=== PATIENT | female | born 1985 | race Caucasian/White ===

== ENCOUNTER 2020-05-22 20:22 | Observation (INO) ==
--- NOTE | 2020-05-22 21:35 | Labor Progress Brief Note ---
Date of Service May 22, 2020 Subjective Patient called with c/o decreased FM and was advised to come in for NST. Occ B- Hx (had ONE painful tightening in the 20min of monitoring after she arrived here) in a background of menstrual type cramps. No LOF, no VB. Since admission has felt 3 movements. Of note, patient has itching of palms/soles and was tested for bile acids recently, has appt scheduled in office tomorrow to get those results. Assessment & Plan (1) Cholestasis of : Patient barely meets criteria for diagnosis - and if diagnosis is made with total bile acids below 10, would be very mild / not at a level where delivery is recommended strongly at 37w2d. Current practice is to deliver as late as 39 weeks with reassuring testing and bile acids <40. However, she has itching of palms and soles. Her lab values are mildly abnormal, and these values come from blood that was drawn nearly a week ago now. Expectation would be for this process to worsen with further gestational age, not improve. Argument could probably be made both for delivering and for not- delivering based on interpretation of her current tracing and labs / GA. (2) Non-reassuring cardiotocographic tracing: Very difficult to interpret FHT tracing thus far and additional data is desired. Explained to patient and FOB that we are in a balance between wanting to deliver before the cholestasis reaches a critical stage, but not deliver earlier than necessary and increase risks of prematurity. Additional monitoring should help clarify true status. PO hydration encouraged in the meantime. Patient is reporting some movement, not much, but frequent movements are clearly audible on the monitor and visible/palpable on the abdomen, so I suspect status is actually good. If FHT are Cat 1 consistently with further tracing, there would be a good argument for continuing the with surveillance to 39 weeks GA. There is also the complicating matter of baby being previously in breech position, and patient is hoping to allow it to convert to vertex so that IOL / can be a possibility for her when the time for delivery comes. Discussed option of ECV --> IOL, but not late at night on a weekend with limited staff to respond if urgent CSec were needed. Questions answered of FOB and patient with Izzy Lucero RN in room, and they agree to overnight monitoring. Physical Exam Physical Exam: Bile acids are elevated, however only just barely - not even a total level of 10 yet. Here today the first 19 min of monitoring are a reactive NST. However she then had her one "real" contraction, and immediately the baseline dropped from 160 to 120, for about 1.5 minutes. This appears like a late deceleration, if strip is viewed only to that point. However, as tracing continues, fetus continues to have what appears to be a new pattern: Baseline looks like it would be 120 with lots of accels, however it has not yet stayed at the new "baseline" for two full minutes, so officially unable to call that the definite new baseline. Therefore some ambiguity: did she have a late decel after her only contraction, followed by a change in pattern / possibly more decels...or did she have a change in pattern from one Cat 1 strip to a different type of Cat 1 strip? [place] irritability with ONE contraction thus far. Results & Data ([facility]) Vital Signs (Past 12 Hours) Vital Signs Pulse BP 05/22/20 20:36 75 132/83 Coding Level of Care Code None Diagnoses Cholestasis of O26.619; K83.1 Non-reassuring cardiotocographic tracing O36.8390
--- NOTE | 2020-05-23 | Labor Progress Brief Note ---
Date of Service May 22, 2020 Subjective Patient feeling FM since her admission, increasing frequency in patient awareness. (RN notes audible FM continues on a very frequent basis). No painful ctx, has menstrual type cramping. No LOF, no VB. Assessment & Plan (1) Cholestasis of : status now appears to be clearly reassuring FHT. movement is occurring regularly, and patient is more aware of it. Would like to get BPP, and if reassuring, return to plan for outpatient monitoring and delivery at 39wk. Admission and Anticipated Discharge Date Admission Date: May 22, 2020 Physical Exam Physical Exam: FHT Cat 1 now, clearly, after additional monitoring [place] with occasional, irregular contractions on monitor but not painful to patient. 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
--- NOTE | 2020-05-23 07:13 | Ultrasound Report ---
US OB BPP wo NST single CLINICAL HISTORY: Decreased movement. COMPARISON STUDY: OB ultrasound January 25, 2020. TECHNIQUE: Transabdominal sonography of the pelvis was performed to assess for biophysical profile. FINDINGS: Single viable intrauterine gestation is noted with normal heart rate of 127 bpm. Plea se note that a dedicated anatomical survey was not performed. Position is breech. Placenta is l ocated within the fundus. Normal movement, tone and breathing were noted with a normal amniotic fluid index of 10.9 cm. The biophysical profile is 8 out of 8. IMPRESSION: 1. Normal biophysical profile 8 out of 8. 2. Single viable intrauterine gestation. Normal heart rate. 3. Breech position. ACT 112: Negative or not required by law. Electronically signed by: Silvino Wheeler M.D. 05/23/2020 7:12 AM
--- NOTE | 2020-05-24 11:54 | Discharge Summary ---
Date of Service May 24, 2020 Hospital Course (1) Non-reassuring cardiotocographic tracing: Eventually reactive with extended monitoring, and BPP 8/8. Bile acids very mildly elevated; likely HAS cholestasis, but at the total BA's <10 would not yet have qualified for formal dx on the day this blood was drawn. Discharged to keep appointment in office the following day. Coding Level of Care Code None Diagnoses Non-reassuring cardiotocographic tracing O36.8390
== END 2020-05-23 02:23 | disposition home or self-care (01) ==
LOC: 4S1 20:22 → OPB 20:22 → 4S1 20:24

== ENCOUNTER 2020-05-28 13:24 | Inpatient (IN) ==
[~2020-05-28 13:24] MED LIST: CITRIC ACID/SODIUM CITRATE 15 ML UDC PO SCH; ceFAZolin 2000MG 2,000 MG/15 ML SYR IV SCH
[2020-05-28] MEDS ORDERED: LACTATED RINGER'S 1,000 ML IV SCH (13:45)
--- NOTE | 2020-05-28 13:54 | History & Physical Report ---
Date of Service May 28, 2020 Assessment & Plan (1) Supervision of normal first : 34yo at 38.1 weeks GA. Active labor with breech presentation. 1. Fetus: Cat 1 2. Labor: Active with breech - Proceed with 3. Vitals: WNL 4. ICP: Symptoms presents. Bile acids elevated but below threshold for diagnosis. (2) Cholestasis of : (3) Breech presentation: (4) Active labor at term: Admission and Anticipated Discharge Date Admission Date: May 28, 2020 History of Present Illness Primary Care Provider: NO PCP 34yo at 38.1 weeks GA. Presents with intense contractions q3min. Denies VB, LOF. Good FM. Patient had closed cervix in clinic earlier this week. complicated by breech presentation and hand and foot pruritus with bile acids at 7. Repeat bile acids pending. Initial OB Labs Blood Type & RH O Positive Antibody Screen Negative HCT/HGB 36.4/12.2 Platelets 257 Pap Test Hx of ASCUS Chlamydia Neg Gonorrhea Neg Rubella immune RPR Non reactive Urine Culture/Screen neg HBsAg Neg HIV Non reactive MCV 93.3 Ultrasound nl 28 week 2 hr gtt. declined genetics/cf/sma. Allergies Allergy/AdvReac Type Severity Reaction Status Date / Time No Known Allergies Allergy Verified 05/25/20 09:37 Home Medications Medication Instructions Recorded Confirmed Type prenat.vits,teja,xan-aovc-mffbr 1 tab PO QAM 02/15/20 05/28/20 History breast pump #1 ea 03/21/20 05/23/20 Rx cholecalciferol (vitamin D3) 125 mcg PO QAM 05/25/20 05/28/20 History [Vitamin D3] omega 5-fwx-lfa-fish oil 2 cap PO QAM 05/25/20 05/28/20 History Patient History Medical History (Updated 05/28/20 @ 13:51 by Bernard Madrigal MD) Anxiety Atypical glandular cells of undetermined significance (OPAL) on cervical Pap smear H/O supraventricular tachycardia hx s/p ablation History of chicken pox Hx of migraines Remote hx Mitral valve prolapse Dx age 21 (Dr. Jeremi Malik [facility]) Surgical History H/O wisdom tooth extraction S/P ablation of ventricular arrhythmia x 2 Family History (Updated 02/15/20 @ 11:07 by Geetha Samuels) Grandfather (Maternal) Cancer of kidney Grandfather (Paternal) Stroke Denies family history of Ovarian cancer Breast cancer Colorectal cancer Social History (Updated 02/15/20 @ 11:09 by Geetha Samuels) Smoking Status: Former smoker Second Hand Exposure: No; Hx Alcohol Use: No Hx Substance Use: No Preferred Language: Belarusian Communication Ability: Effective Child Development Consultant Required: No Beliefs That Will Affect Care: None marital status: marital status details: Chris Bowen (36) [phone] Current Living Situation: Spouse Current Living Situation Comment: lives with spouse, dog current occupational status: 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 Other Information That Helps Us Care for You: No Feels Safe at Home: Yes Safety Concerns: Feels Safe At This Time Assistive Devices: Contacts and Glasses Physical Exam Constitutional: WD/WN, vitals as above Neck: trachea midline, no thyromegaly Respiratory: normal respiratory effort, lungs clear to auscultation Cardiovascular: RRR, no murmur, no edema Gastrointestinal (Abdomen): Inspection/Auscultation: abdomen not distended Percussion/Palpation: abdomen soft; abdomen nontender, no guarding and abdomen not rigid Neurologic: patellar DTR's 2+ bilat, sensation intact Psychiatric: A+Ox3, euthymic affect Genitourinary: OB Exam Abdomen: + breech (By US) Manual OB Exam: + cervical dilation 4 cm, + cervical effacement 90% and + station -2 OB Exam Monitor Tracing: + external FHT monitor used, + external uterine monitor used, + category I and + normal FHT variability; no early decelerations present, no late decelerations present and no variable decelerations Coding Level of Care Code None Diagnoses Supervision of normal first Z34.00 Cholestasis of O26.619; K83.1 Breech presentation O32.1XX0 Active labor at term
[2020-05-28] MEDS ORDERED: MoRPHine SULFATE PF 1 MG/ML 10 ML AMP/VIAL ONE (14:07)
[2020-05-28] MEDS ORDERED: fentaNYL citrate 100 MCG/2 ML VIAL ONE (14:07)
[2020-05-28] MEDS ORDERED: PROPOFOL IV EMULSION 10 MG/ML 20 ML VIAL IV ONE (14:13)
[2020-05-28] MEDS ORDERED: NALOXONE HCL 0.08 MG in SYRINGE 1.8 ML IV PRN (14:23)
[2020-05-28] MEDS ORDERED: NALOXONE HCL 0.4 MG/1 ML VIAL/CARP IV PRN (14:23)
[2020-05-28] MEDS ORDERED: diphenhydrAMINE 50 MG/ML VIAL IV PRN (14:23)
[2020-05-28] MEDS ORDERED: ONDANSETRON INJ 2 MG/ML 2 ML VIAL IV PRN (14:23)
[2020-05-28] MEDS ORDERED: NALOXONE HCL 1 MG in SODIUM CHLORIDE 0.9% 1000ML 1,000 ML IV PRN (14:23)
[2020-05-28] MEDS ORDERED: HYDROmorphone INJ 0.5 MG/0.5 ML SYR IV PRN (14:23)
[2020-05-28] MEDS ORDERED: LACTATED RINGER'S 500 ML IV PRN (14:23)
[2020-05-28] MEDS ORDERED: MoRPHine SULFATE PF 1 MG/ML 10 ML AMP/VIAL INT SPINAL ONE (14:23)
[2020-05-28] MEDS ORDERED: ePHEDrine sulfate 50 MG/ML AMP IV PRN (14:23)
[2020-05-28] MEDS ORDERED: DC INTRASPINAL MORPHINE SCH (14:30)
[2020-05-28] MEDS ORDERED: NO NARCOTICS OR SEDATIVES SCH (14:30)
[2020-05-28] MEDS ORDERED: SODIUM CHLORIDE 0.9% 1000ML 1,000 ML IV SCH (14:30)
--- NOTE | 2020-05-28 14:32 | Anesthesiology Consultation ---
Date of Service May 28, 2020 Covid 19 negative on 05/28/18. Assessment & Plan Chart Review Chart Review: Acceptable Risk for Surgery and Patient NOT seen in Pre Admission Testing Consults Requested none ASA ASA2E Proposed Anesthesia Anesthesia Type: MAC Spinal Risk / Benefits Reviewed With: PT / POA / Parent / Guardian, Accepts Plan and Informed Consent Obtained History Surgery Operation Date: 05/28/20 14:30 Proposed Procedures p Section in LD(Bilateral) - Bernard Madrigal MD Height/Weight Height: 5 ft 8 in Weight: 77.564 kg Allergies Allergy/AdvReac Type Severity Reaction Status Date / Time No Known Allergies Allergy Verified 05/25/20 09:37 Medications Home Medications Medication Instructions Recorded Confirmed Last Taken prenat.vits,teja,jur-abky-ncedi 1 tab PO QAM 02/15/20 05/28/20 05/27/20 breast pump #1 ea 03/21/20 05/23/20 Unknown cholecalciferol (vitamin D3) 125 mcg PO QAM 05/25/20 05/28/20 05/27/20 [Vitamin D3] omega 9-ylb-dvb-fish oil 2 cap PO QAM 05/25/20 05/28/20 05/27/20 Active Medications Generic Name Dose Route Start Last Admin Trade Name Freq PRN Reason Stop Dose Admin Citric Acid/Sodium Citrate 30 ml 05/28/20 06:00 05/28/20 14:16 Citric Acid/Sodium Citrate 15 Ml Udc PO 05/29/20 05:59 30 ml PREOP EVANGELINA Administration Cefazolin Sodium 2,000 mg in 15 mls @ 3.75 mls/min 05/28/20 06:00 05/28/20 14:32 Ancef 2000mg IV 05/29/20 05:59 3.75 mls/min PREOP EVANGELINA Administration Lactated Ringer's 1,000 mls @ 999 mls/hr 05/28/20 13:45 05/28/20 13:45 Lr IV 05/28/20 14:45 999 mls/hr .Q1H1M EVANGELINA Administration NPO Date Last Intake of Fluids: 05/13/20 Time Last Intake of Fluids: 12:00 Date Last Intake of Solids: 05/28/20 Time Last Intake of Solids: 12:00 Past Medical History Medical History Anxiety Atypical glandular cells of undetermined significance (OPAL) on cervical Pap smear H/O supraventricular tachycardia hx s/p ablation History of chicken pox Hx of migraines Remote hx Mitral valve prolapse Dx age 21 (Dr. Jeremi Malik [facility]) Exercise / Class Metabolic Activity II 4-5 Yardwork/Stairs/Walk up hill Past Family History Family History Grandfather (Maternal) Cancer of kidney Grandfather (Paternal) Stroke Denies family history of Ovarian cancer Breast cancer Colorectal cancer Past Surgical History Surgical History H/O wisdom tooth extraction S/P ablation of ventricular arrhythmia x 2 Past Anesthesia History No Hx of Anesthesia Complications and No Family Hx of Anesthesia Complications History of PONV History of PONV and Hx of Motion Sickness Social History Smoking Status: Former smoker tobacco type: cigarettes Hx Alcohol Use: No Hx Substance Use: No substance use type: does not use Review of Systems no chest pain or sob Physical Exam Vital Signs Last Vital Signs Temp 37.1 C 05/28/20 14:17 Pulse 104 H 05/28/20 14:30 Resp 18 05/28/20 14:17 BP 146/87 H 05/28/20 14:17 Pulse Ox 100 05/28/20 14:30 SpO2 99 ENMT Mouth: no TMJ abnormality Thyromental Distance: > or= 3.5 Finger Breadths Mallampati Class: II Neck normal visual inspection Respiratory normal respiratory effort Auscultation: lungs clear to auscultation bilaterally Cardiovascular Rate/Rhythm: regular rate and regular rhythm Musculoskeletal Spine: normal cervical ROM Neurologic moves all extremities Psychiatric Orientation: alert and oriented x 3 Testing Laboratory Results 05/28/20 13:59 Echocardiogram Date: 05/04/20 EF: 60 LV Function: normal Valvular Disease: + MR (mild, MVP)
[2020-05-28 14:33] LABS: Hematocrit (blood only) 37.1 % (37-47); Hemoglobin 12.5 g/dL (12.0-16.0); Mean Corpuscular Hemoglobin 31.5 pg (25-34); Mean Corpuscular Volume 93.5 fL (80-100); Mean Platelet Volume 11.2 fL (7.4-10.4); Platelet Count 194 K/uL (130-400); RDW Standard Deviation 44.3 fL (36.4-46.3); Red Blood Count 3.97 M/uL (4.2-5.4); White Blood Count 12.35 K/uL (4.8-10.8)
[2020-05-28] MEDS ORDERED: OXYTOCIN 10 UNITS/ML VIAL ONE (14:36)
[2020-05-28 14:37] LABS: Mean Corpuscular Hgb Conc 33.7 g/dL (32-36)
[2020-05-28] MEDS ORDERED: PHENYLEPHRINE 100MCG/ML 5ML SYR ONE ×2 (15:04→15:19)
[2020-05-28] MEDS ORDERED: ONDANSETRON INJ 2 MG/ML 2 ML VIAL ONE (15:04)
[2020-05-28] MEDS ORDERED: DIPHTHERIA/TETANUS/PERTUSSIS 0.5 ML SYR/VIAL IM ONE (15:35)
[2020-05-28] MEDS ORDERED: HYDROCORTISONE ACETATE 25 MG SUPP PR PRN (15:35)
[2020-05-28] MEDS ORDERED: BENZOCAINE 20% AER SPR 82.5 GM CAN EXT PRN (15:35)
[2020-05-28] MEDS ORDERED: MAGNESIUM HYDROXIDE SUSP 30 ML UDC PO PRN (15:35)
[2020-05-28] MEDS ORDERED: SUPERCREAM 0.870% 15 GM JAR EXT PRN (15:35)
[2020-05-28] MEDS ORDERED: SENNA 8.6 MG TAB PO PRN (15:35)
--- NOTE | 2020-05-28 15:35 | Post Operative Brief Note ---
PG Immediate Post Op with CF Date of Surgery May 28, 2020 Pre & Post Diagnosis Operation Date: 05/28/20 14:30 Pre-Op Diagnosis: Intrauterine at term;Breech;Labor;Cholestasis of Post-Op Diagnosis: Same; Delivery of a live female child at 1501 ( main OR 3) I identified the patient and participated in the time-out.: Yes Procedure Operation Date: 05/28/20 14:30 Actual Procedures p Section in LD(Bilateral) - Bernard Madrigal MD Surgeon Bernard Madrigal MD Chemical Lab Supervisor None Estimated Blood Loss 500 Findings Consistent with Post-Op Diagnosis Specimens Specimen Description: A. Placenta-hold B. Cord Blood Drains Vazquez Catheter
--- NOTE | 2020-05-28 16:04 | Anesthesiology Progress Note ---
Date of Service May 28, 2020 Anesthesia Post Procedure Vital Signs Vital Signs: Temp Pulse Resp BP Pulse Ox 05/28/20 15:58 102 H 97 05/28/20 15:54 105 H 111/79 91 05/28/20 15:53 105 H 99 05/28/20 15:49 101 H 139/80 05/28/20 15:48 109 H 98 05/28/20 15:43 109 H 100 05/28/20 14:30 104 H 100 05/28/20 14:17 37.1 C 80 18 146/87 H 05/28/20 13:33 37.1 C 18 Transfer of Care Handoff Completed per policy Notes Mental Status: alert / awake / arousable Patient Amnestic to Procedure: Yes Nausea / Vomiting: adequately controlled Pain: adequately controlled Airway Patency, RR, SpO2: stable & adequate BP & HR: stable & adequate Hydration State: stable & adequate Neuraxial Anesthesia: was administered and sensory block is resolving Anesthetic Complications: no major complications apparent and Pt Satisfied with anesthetic care Notes: The patient had a tachycardic episode in the OR. She felt nauseous and "shaky." She is awake and stable in recovery.
--- NOTE | 2020-05-28 16:39 | Operative Report (OR) ---
DATE OF OPERATION: 05/28/2020 PROCEDURE: Primary low transverse section. SURGEON: Bernard Madrigal MD. PREOPERATIVE DIAGNOSES: 1. Single intrauterine at term. 2. Breech presentation. 3. Labor. 4. Suspected cholestasis of . POSTOPERATIVE DIAGNOSES: 1. Single intrauterine at term. 2. Breech presentation. 3. Labor. 4. Suspected cholestasis of . 5. Status post procedure. ESTIMATED BLOOD LOSS: 500 mL DRAINS: A Vazquez catheter. FLUIDS: Continuous lactated Ringer. URINE OUTPUT: Per Vazquez catheter. COMPLICATIONS: None. FINDINGS: Viable female infant with weight pending, Apgars 8 and 9 at 1 and 5 minutes respectively. INDICATIONS: The patient is a 34-year-old G1, P0, admitted at 38 weeks 1 day gestational age, in labor. At initial evaluation, the patient was found to be 4 cm dilated, 100% effaced, -2 station with painful contractions occurring about every 3-4 minutes. The patient was consented for the primary section, which was performed without complication. DESCRIPTION OF PROCEDURE: The patient was taken to the operating room after consents were ensured. Upon presentation, she was properly identified. Spinal anesthesia was obtained without difficulty. The patient was then prepped and draped in normal sterile fashion. Preprocedural timeout was performed. Adequate surgical levels were noted on testing. A Pfannenstiel incision was then made with a knife and was carried down to underlying fascia with the Bovie and blunt dissection. The fascia was then nicked at the midline with the knife. This was extended laterally in each direction with pickups and Granados scissors. Superior aspect of the fascia was grasped with Kochers x2, elevated off the underlying rectus muscles using blunt dissection, the inferior aspect of the fascia was grasped with Kochers x2, elevated off the underlying rectus muscle using blunt dissection. The midline was then entered bluntly and placed on stretcher to provide adequate room for delivery. The uterus was noted to be midline. A bladder flap was created. A low transverse uterine incision was then made. Head of the was noted to be in scout breech position and the bottom was delivered through the hysterotomy to the level of the knee. Both legs were then internally rotated, one after the other to allow for delivery through the hysterotomy. The delivery continued to the level of the axilla. Both arms were delivered with internal rotation at the shoulder. The head of delivered without difficulty. was noted to be vigorous upon delivery. Cord was double clamped and cut. was delivered and taken to the waiting nursery staff. Cord blood was obtained. Attention was then turned to deliver the placenta, which was delivered intact with 3-vessel cord with uterine massage and gentle cord traction. The uterus was exteriorized and several passes were made to remove any remaining membranes with a dry lap. The hysterotomy was then reapproximated with 0 Vicryl in continuous running locked stitch. A second imbricating layer was performed. The posterior cul-de-sac was then cleaned of clots and debris. The uterus was inspected and was noted to have normal-appearing anatomy of bilateral ovaries, bilateral fallopian tubes and uterus. The uterus was returned to the maternal abdomen. The right and left pericolic gutters were cleaned of clots and debris. The hysterotomy inspected and noted to be hemostatic. The muscle, fascia and subcutaneous layers were inspected and noted to be hemostatic. The fascia was then reapproximated with 0 Vicryl continuous running stitch. The subcutaneous layers were inspected and noted to be hemostatic and were reapproximated with a 2-0 plain in a continuous running stitch. The dermal layers were reapproximated with 3-0 Vicryl on a Damien needle. Needle, sponge and instrument counts were correct at the completion of the case with mother and stable in the immediate post-delivery period. I attest to the content of the Intraoperative Record and any orders documented therein. Any exception s are noted below.
[2020-05-28] MEDS ORDERED: OXYTOCIN 20 UNITS in LACTATED RINGER'S 1,000 ML IV SCH (16:45)
[2020-05-28] MEDS: SIMETHICONE 80 MG CHEW PO SCH ×2 (17:18→20:13)
[2020-05-28] MEDS: KETOROLAC 30 MG/ML VIAL IV PRN ×2 (17:49→23:22)
[2020-05-28] MEDS: LACTATED RINGER'S 1,000 ML IV SCH (18:59)
[2020-05-28] MEDS: DOCUSATE SODIUM 100 MG CAP PO SCH (20:13)
[2020-05-29] MEDS: LACTATED RINGER'S 1,000 ML IV SCH (01:21)
[2020-05-29] MEDS: KETOROLAC 30 MG/ML VIAL IV PRN (06:02)
[2020-05-29 06:34] LABS: Basophils # (auto) 0.01 K/uL (0-0.2); Basophils % (auto) 0.1 %; Eosinophils # (auto) 0.01 K/uL (0-0.5); Eosinophils % (auto) 0.1 %; Hematocrit (blood only) 34.1 % (37-47); Hemoglobin 11.9 g/dL (12.0-16.0); Immature Granulocytes # (auto) 0.03 K/uL (0.00-0.02); Immature Granulocytes % (auto) 0.2 %; Lymphocytes # (auto) 1.25 K/uL (1.2-3.4); Lymphocytes % (auto) 8.5 %; Mean Corpuscular Hemoglobin 31.9 pg (25-34); Mean Corpuscular Hgb Conc 34.9 g/dL (32-36); Mean Corpuscular Volume 91.4 fL (80-100); Mean Platelet Volume 10.6 fL (7.4-10.4); Monocytes # (auto) 0.81 K/uL (0.11-0.59); Monocytes % (auto) 5.5 %; Neutrophils # (auto) 12.56 K/uL (1.4-6.5); Neutrophils % (auto) 85.6 %; Platelet Count 159 K/uL (130-400); RDW Coefficient of Variation 13.1 % (11.5-14.5); RDW Standard Deviation 43.8 fL (36.4-46.3); Red Blood Count 3.73 M/uL (4.2-5.4); White Blood Count 14.67 K/uL (4.8-10.8)
[2020-05-29] MEDS ORDERED: PROMETHAZINE HCL 25 MG in SODIUM CHLORIDE 0.9% 50 ML IV PRN (08:24)
[2020-05-29] MEDS ORDERED: diphenhydrAMINE Capsule 25 MG CAP PO PRN (08:24)
[2020-05-29] MEDS ORDERED: KETOROLAC 30 MG/ML VIAL IV PRN (08:24)
[2020-05-29] MEDS ORDERED: diphenhydrAMINE 50 MG/ML VIAL IV PRN (08:24)
[2020-05-29] MEDS ORDERED: ONDANSETRON INJ 2 MG/ML 2 ML VIAL IV PRN (08:24)
--- NOTE | 2020-05-29 10:00 | Obstetrical Progress Note ---
Date of Service May 29, 2020 Assessment & Plan (1) Encounter for care and examination after delivery: 34yo day 1 s/p LTCS. Doing well. Routine care Subjective Ambulation: ambulating normally Voiding: no voiding problems Passing Gas:: Yes Diet Tolerance:: regular diet Lochia:: Moderate Physical Exam Constitutional WD/WN, vitals as above Respiratory normal respiratory effort; no respiratory distress and no labored breathing Gastrointestinal (Abdomen) Inspection/Auscultation: abdomen normal to inspection; abdomen not distended Percussion/Palpation: abdomen soft; abdomen nontender, no guarding and abdomen not rigid Genitourinary OB Exam Abdomen: + fundal height Fundus: + firm and + relation to umbilicus (Below); not tender and not boggy Results & Data ([facility]) Vital Signs (Past 12 Hours) Vital Signs Temp Pulse Resp BP Pulse Ox 05/29/20 08:10 36.8 C 67 18 118/69 98 05/29/20 06:00 18 98 05/29/20 05:00 20 97 05/29/20 04:01 16 98 05/29/20 04:00 36.7 C 62 20 135/74 98 05/29/20 03:00 20 97 05/29/20 02:00 16 97 05/29/20 01:00 18 97 05/29/20 00:00 20 98 05/28/20 23:30 36.7 C 60 18 153/79 H 97 05/28/20 23:00 18 98 05/28/20 22:00 20 98
[2020-05-29] MEDS: IBUPROFEN 600 MG TAB PO PRN ×4 (10:06→22:41)
[2020-05-29] MEDS: FERROUS SULFATE 325 MG TAB PO SCH (10:07)
[2020-05-29] MEDS: SIMETHICONE 80 MG CHEW PO SCH ×4 (10:07→19:46)
[2020-05-29] MEDS: oxyCODONE/ACETAMINOPHEN 5mg/325mg TAB PO PRN ×4 (10:07→22:40)
[2020-05-29] MEDS: DOCUSATE SODIUM 100 MG CAP PO SCH ×2 (10:07→19:46)
[2020-05-29] MEDS: PRENATAL VITAMIN 1 TAB PO SCH (10:07)
[2020-05-29] MEDS ORDERED: bisacodyL 5 MG TABEC PO SCH (20:00)
[2020-05-30] MEDS: oxyCODONE/ACETAMINOPHEN 5mg/325mg TAB PO PRN ×3 (03:46→13:03)
[2020-05-30] MEDS: IBUPROFEN 600 MG TAB PO PRN ×3 (03:46→13:04)
--- NOTE | 2020-05-30 07:51 | Obstetrical Progress Note ---
Date of Service May 30, 2020 Assessment & Plan (1) Encounter for care and examination after delivery: 34yo day 1 s/p LTCS. Doing well. Routine care Subjective Ambulation: ambulating normally Voiding: no voiding problems Diet Tolerance:: regular diet Lochia:: Moderate Feeding Type:: breast feeding Physical Exam Constitutional WD/WN, vitals as above Respiratory normal respiratory effort; no respiratory distress and no labored breathing Gastrointestinal (Abdomen) Inspection/Auscultation: abdomen normal to inspection; abdomen not distended Percussion/Palpation: abdomen soft; abdomen nontender, no guarding and abdomen not rigid incision c/d/i Genitourinary OB Exam Abdomen: + fundal height Fundus: + firm and + relation to umbilicus (Below); not tender and not boggy Results & Data ([facility]) Vital Signs (Past 12 Hours) Vital Signs Temp Pulse Resp BP Pulse Ox 05/29/20 22:40 36.7 C 63 16 133/78 97
[2020-05-30] MEDS: SIMETHICONE 80 MG CHEW PO SCH ×2 (08:28→13:03)
[2020-05-30] MEDS: DOCUSATE SODIUM 100 MG CAP PO SCH (08:28)
[2020-05-30] MEDS: PRENATAL VITAMIN 1 TAB PO SCH (08:29)
[2020-05-30] MEDS: FERROUS SULFATE 325 MG TAB PO SCH (08:29)
[2020-05-30] MEDS ORDERED: bisacodyL 10 MG SUPP PR PRN (15:35)
--- NOTE | 2020-06-09 04:07 | Discharge Summary (DS) ---
HOSPITAL COURSE: The patient was admitted in early labor with fetus in breech presentation. The patient ultimately underwent a primary low transverse section, which was performed without complication. The patient remained in-house for 2 days and did well without any complications or concerns. The patient was discharged home in stable condition on postoperative day #2 per patient request with both written and verbal discharge instructions. I recommend 6-week followup visit for routine care and earlier if any complications or concerns arise.
== END 2020-05-30 14:45 | disposition home or self-care (01) | DRG 786 ==
LOC: OPB 13:24 → 4S1 13:25 → 4S2 18:45

== ENCOUNTER 2022-06-12 22:07 | Observation (INO) ==
[2022-06-12 22:52] LABS: Basophils # (auto) 0.02 K/uL (0-0.2); Basophils % (auto) 0.3 %; Eosinophils # (auto) 0.09 K/uL (0-0.50); Eosinophils % (auto) 1.2 %; Hematocrit (blood only) 36.7 % (37.0-47.0); Hemoglobin 12.3 g/dl (12.0-16.0); Immature Granulocytes # (auto) 0.04 K/uL (0.01-0.20); Immature Granulocytes % (auto) 0.5 %; Lymphocytes # (auto) 2.03 K/uL (1.2-3.4); Lymphocytes % (auto) 27.5 %; Mean Corpuscular Hemoglobin 30.9 pg (25.0-34.0); Mean Corpuscular Hgb Conc 33.5 g/dL (32.0-36.0); Mean Corpuscular Volume 92.2 fL (80.0-100.0); Mean Platelet Volume 9.7 fL (9.4-12.4); Monocytes # (auto) 0.82 K/uL (0.11-0.59); Monocytes % (auto) 11.1 %; Neutrophils # (auto) 4.38 K/uL (1.40-6.50); Neutrophils % (auto) 59.4 %; Platelet Count 234 K/uL (130-400); RDW Coefficient of Variation 13.7 % (11.5-14.5); RDW Standard Deviation 46.4 fL (36.4-46.3); Red Blood Count 3.98 M/uL (4.20-5.40); White Blood Count 7.38 K/ul (4.8-10.8)
[2022-06-12 23:08] LABS: Alanine Aminotransferase 7 U/L (7-52); Albumin Globulin Ratio 1.1 (0.9-2); Albumin Level 3.4 gm/dl (3.4-5.0); Alkaline Phosphatase 106 U/L (34-104); Anion Gap 5 (3-11); Aspartate Aminotransferase 17 U/L (13-39); BUN Creatinine Ratio 16.3 (10-20); Bilirubin,Total 0.3 mg/dl (0.2-1.0); Blood Urea Nitrogen 7 mg/dl (6-23); Calcium 8.7 mg/dl (8.6-10.3); Carbon Dioxide 25 mmol/L (21-32); Chloride 104 mmol/L (98-107); Creatinine Clr Calc Pharmacy 199.1 ml/min; Est GFR (African American) > 150.0 ml/min; Est GFR (Non-African American) 131.8 ml/min; Globulin 3.2 gm/dl (2.5-4.0); Glucose 97 mg/dl (70-99(Fasting)); Potassium 3.6 mmol/L (3.5-5.1); Sodium 134 mmol/L (136-145); Total Protein 6.6 gm/dl (6.0-8.3)
[2022-06-12 23:15] LABS: Troponin I High Sensitivity 5.5 pg/ml (0-14)
[2022-06-12 23:21] LABS: INR 0.9 (0.9-1.1); Partial Thromboplastin Ratio 0.9; Partial Thromboplastin Time 23.5 Seconds (21.0-31.0); Prothrombin Time 9.8 Seconds (9.0-12.0)
[2022-06-13 01:48] LABS: Magnesium 1.7 mg/dl (1.7-2.4)
--- NOTE | 2022-06-13 03:52 | History & Physical Report ---
Date of Service June 13, 2022 Assessment & Plan (1) Pre-syncope: Plan: 36 F at 36 weeks presenting to the hospital for episode of presyncope without fall. Now admitted for observation for telemetric supervision. Presyncopal episode -Prodromal vision tunneling, no trauma or LOC. Vitals, labs, imaging mostly normal. -First-time occurrence. Patient has remote history of SVT that resolved s/p ablation x2. -No other significant PMH, no chronic medications prior to . * Admit to telemetry unit for observation * Repleted K+ to 4.0, Mg 2+ to 2.0. * GLUE CLAMP OPERATOR consulted for additional evaluation as she is 36 weeks . Appr eciate recs * IV bolus LR x500 cc for symptomatic hypotension. Otherwise trend vitals. Code: Full code Dispo: Med-Surg telemetry FEN/GI: Regular diet DVT Prophylaxis: None PT/OT: No Consults: GLUE CLAMP OPERATOR (2) Viable : History of Present Illness Primary Care Provider: Leonardo Cifuentes MD Mago is a 36-year-old at 36 weeks who presents to the hospital for further evaluation of an episode of presyncope that she had this afternoon. Patient reports she was standing at home when she felt her heart "stop beating." She then began feeling dizzy and felt her vision narrowing, as though she were slowly blacking out. She then called for her , who is in the next room, who then brought her to the hospital for evaluation. ROS + nausea, and shaking chills. She denies headache, fall, loss of consciousness, chest pain, palpitations, shortness of breath, abdominal pain, diaphoresis, recent illness, or paresthesias in extremities. She denies prior history of syncope or presyncope. She does report a prior episode of SVT (s/p ablation x2, no recurrence/chronic meds; sees Dr. Jeremi Varela in [place] for routine surveillance) that occurred 15 years ago. Patient also has mitral valve prolapse (most recent echo 01/22/2022 shows trace MR without mitral valve stenosis, EF = 60 to 65%, no other valvular abnormalities). She denies any family history of cardiac related at a young age or any cardiomyopathy. She has no other medical history and was not on any chronic medications prior to her . In the ED, vitals were within normal limits. Labs revealed Na+ of 134, K+ of 3.6, alk phos of 106. No leukocytosis, thrombocytopenia or anemia. Creatinine of 0.43, which appears to be her baseline. Initial troponin was negative. Patient also reported some varicose veins in the pubic area, right-sided medial thigh pain and was sent for venous Doppler study which was negative for DVT. On admission, patient is resting comfortably on room air with her at bedside. She corroborates HPI. ROS+ no new symptoms. She has had no recurrence of her heart skipping. Allergies Allergy/AdvReac Type Severity Reaction Status Date / Time No Known Allergies Allergy Verified 06/14/22 09:07 Home Medications Medication Instructions Recorded Confirmed Type prenat.vits,teja,[id number] 1 tab PO QAM 02/15/20 06/14/22 History cholecalciferol (vitamin D3) 125 125 mcg PO QAM 05/25/20 06/14/22 History mcg (5,000 unit) tablet (Vitamin D3) omega 3-dha 250 mg-epa 350 mg-fish 2 cap PO QAM 05/25/20 06/14/22 History oil 1,000 mg capsule Past Med/Surg History Medical History (Updated 06/14/22 @ 01:25 by Concepción Han DO) Active labor at term Anxiety Atypical glandular cells of undetermined significance (OPAL) on cervical Pap smear Breech presentation Cholestasis H/O supraventricular tachycardia hx s/p ablation History of chicken pox Hx of migraines Remote hx Mitral valve prolapse Dx age 21 (Dr. Jeremi Malik [facility]) Supervision of normal first Surgical History H/O wisdom tooth extraction History of removal of cyst S/P ablation of ventricular arrhythmia x 2 S/P section Family History Grandfather (Maternal) Cancer of kidney Heart disease Grandfather (Paternal) Stroke Mother Hypothyroid Denies family history of Ovarian cancer Breast cancer Colorectal cancer Social History (Updated 11/29/21 @ 09:53 by Geetha Samuels) Smoking Status: Never smoker Second Hand Exposure: No; Hx Alcohol Use: No Hx Substance Use: No Preferred Language: Scottish Communication Ability: Effective Visual Impairment: No Limitations Blacksmith Assistant Required: No Beliefs That Will Affect Care: None marital status: marital status details: Chris Bowen (37) [phone] Current Living Situation: Family Current Living Situation Comment: lives with spouse, son, dog current occupational status: 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 Feels Safe at Home: Yes during the past year weight has: decreased > 10 lbs Assistive Devices: None Review of Systems Review of Systems: All systems reviewed & are unremarkable except as noted in HPI & below Physical Exam Physical Exam: General: No acute distress HEENT: PERRLA. Normal conjunctiva, anicteric sclera. Oropharynx normal. Respiratory: Normal respiratory effort, CTABL. Cardiovascular: RRR without murmurs, gallops, or rubs. 1+ nonpitting pedal edema bilaterally. GI: Normal bowel sounds heard on auscultation. Nontender x4 quadrants Neuro: Alert and oriented x3. Results & Data Results & Data Vital Signs (Past 12 Hours) Vital Signs Temp Pulse Pulse Resp BP BP Pulse Ox 06/13/22 03:19 76 20 112/58 L 98 06/13/22 02:57 83 06/13/22 01:10 68 18 104/58 L 98 06/12/22 23:06 74 18 145/81 H 98 06/12/22 22:36 88 06/12/22 22:20 36.8 C 84 18 130/87 100 O2 Del Method 06/13/22 03:19 Room Air 06/13/22 02:57 06/13/22 01:10 Room Air 06/12/22 23:06 Room Air 06/12/22 22:36 06/12/22 22:20 Room Air Supervising Physician Co-Signing Physician Notes Attending addendum: I have physically seen this patient, have supervised the medical residents activities, and agree with the H&P unless as otherwise noted. Assessment and Plan: Presyncope- Potential contributing factors including but limited to: 36-week , history of SVT status post ablation 10 years ago, dehydration, infection such as UTI Admit to telemetry to monitor for arrhythmia Potassium 3.6, give 2K riders to target for Magnesium 1.7 not a candidate for optimization with IV due to , encouraging high potassium magnesium foods GLUE CLAMP OPERATOR consulted to monitor baby for routine assessment IV fluids as noted Remaining orders and notations as noted Resident Activity Tracking Resident Involvement: Resident Care Provided Care Provided: Adult Hospital Medicine
--- NOTE | 2022-06-13 04:02 | Ultrasound Report ---
Exam(s): US VENOUS RIGHT LOWER EXTREMITY EXAM: US Duplex Right Lower Extremity Veins CLINICAL HISTORY: Reason for exam: eval for DVT. TECHNIQUE: Real-time duplex ultrasound scan of the right lower extremity veins integrating B-mode two-dimensional vascular structure, Doppler spectral analysis, color flow Doppler imaging and compression. COMPARISON: None. FINDINGS: Deep veins: Diffuse homogeneous echoes demonstrated within the right superficial femoral vein with otherwise normal color flow within normal compressibility and normal respiratory variation consistent with rouleaux formation. Normal augmentation. No DVT in the visualized common femoral, femoral, proximal deep femoral or popliteal veins. The veins demonstrate normal color flow, are normally compressible, with normal phasic flow and/or augmentation response. Superficial veins: Unremarkable. No thrombus in the visualized great saphenous vein. Soft tissues: No acute findings. No popliteal cyst. IMPRESSION: No ultrasonographic evidence of deep venous thrombosis involving the right lower extremity. Electronically signed by: Reyna Tabares MD 06/13/22 04:01 AM
[2022-06-13] MEDS ORDERED: MAGNESIUM SULFATE / D5W 1 GM/100 ML BAG IV SCH (04:33)
--- NOTE | 2022-06-13 04:46 | Emergency Department Note ---
Impression & Plan Near syncope, 36 weeks gestation [facility] Note NAME: ELIO TALAVERA AGE: 36 SEX: F ARRIVES VIA: Walk-In INFORMANT: Patient ED PROVIDER(S): Concepción Han DO CHIEF COMPLAINT: Lightheaded and shaking PLAN: Disposition: Admit to the [facility] Condition: Guarded MEDICAL DECISION MAKING: This is a 36-year-old female patient G3, P1 who presents to the emergency department after an episode of near syncope, lightheadedness and shakiness. Patient is 36 weeks . This has been an uneventful . She de scribes an episode where she felt her heart pause and then as if she was going to pass out. Her assisted her to a bed to lay down. She then felt lightheaded and shaky. She presents to the emergency department for evaluation. EKG was unremarkable. Laboratory studies were essentially normal except for a potassium which was on the low end of normal. The patient does have a history of SVT for which she underwent ablation on 2 different occasions. Patient describes engorged and painful varicose veins in her right groin/anterior and medial thigh. She had undergone duplex evaluation of that extremity 3 weeks ago which was negative for DVT. We really evaluated that extremity tonight by duplex and it was again negative. Patient has been monitored here in the emergency department on a manufacturing lead with no obvious ectopic beats or signs of arrhythmia. [facility] and [facility] will evaluate for further management. Triage Nursing notes reviewed and agree with them. Additional history obtained from the who is at the bedside External medical records reviewed including obstetrics notes Vital Signs: reviewed and remarkable for mild hypotension Differential diagnosis: Cardiac dysrhythmia, dehydration, electrolyte abnormality, DVT, PE Diagnostics interpreted by me: ECG normal sinus rhythm at a rate of 87 with sinus arrhythmia. There is no ST segment elevation or signs of ischemia. There is no ectopy. QTc was 423 ms. Cardiac Monitoring: Normal sinus rhythm at 74 Laboratory studies: See below Imaging studies: As per stat rad Right lower extremity duplex: See report HPI: 36/F arrives for evaluation of lightheadedness and shaking. Patient describes an episode where she was standing in her kitchen and felt her heart pause. She then became extremely lightheaded and near syncopal. She then called for her . She then began to shake and he assisted her to the bed. She then was quite nauseated. She describes significant varicose veins in the right thigh which have become more painful. She has a history of SVT status post ablation approximately 10 years ago. PAST MEDICAL HISTORY:See Below PAST SURGICAL HISTORY:See Below FAMILY HISTORY:See Below SOCIAL HISTORY:See Below HOME MEDICATIONS:See list ALLERGIES:None VITALS:See Below PHYSICAL EXAMINATION: HEENT: Head - normocephalic and atraumatic. Pupils are equal, round, and reactive to light. Extraocular eye muscles are intact, and sclera are anicteric. Nose - moist nasal mucosa without discharge. Mouth - moist buccal mucosa. Oropharynx is nonerythematous and there is no tonsillar exudate or edema noted. Neck: Supple; no JVD, nuchal rigidity, cervical lymphadenopathy, or auscultated bruits. Heart: Regular rate and rhythm. There is a normal S1 and S2 with no murmurs, clicks, or gallops appreciated. Lungs: Clear to auscultation bilaterally with no wheezes, rales, or rhonchi. Abdomen: Soft, nontender and gravid. There are no palpable pulsatile masses or hepatosplenomegaly. There is no guarding, rigidity, or rebound noted. Extremities: Slightly engorged varicose veins in the right inguinal canal as well as the anterior and medial aspect of the right thigh. These areas are slightly tender to touch. There is no appreciable edema in either lower extre mity. Skin: warm and dry with good turgor and no rashes. ED COURSE: Times/Reassessments: 2325: Patient was evaluated in room C11. A complete history and physical was performed. An IV lock was initiated and labs are drawn as above. An order was placed for continuous cardiac monitoring. The patient was in a normal sinus rhythm at a rate of 74. A twelve-lead EKG was obtained as described above. Patient had an ultrasound of the right lower extremity. [facility] and [facility] will evaluate for further management. Concepción Han DO Past Med/Surg History Medical History (Updated 06/14/22 @ 01:25 by Concepción Han DO) Active labor at term Anxiety Atypical glandular cells of undetermined significance (OPAL) on cervical Pap smear Breech presentation Cholestasis H/O supraventricular tachycardia hx s/p ablation History of chicken pox Hx of migraines Remote hx Mitral valve prolapse Dx age 21 (Dr. Jeremi Malik [facility]) Supervision of normal first Surgical History H/O wisdom tooth extraction History of removal of cyst S/P ablation of ventricular arrhythmia x 2 S/P section Family History Grandfather (Maternal) Cancer of kidney Heart disease Grandfather (Paternal) Stroke Mother Hypothyroid Denies family history of Ovarian cancer Breast cancer Colorectal cancer Social History (Updated 11/29/21 @ 09:53 by Geetha Samuels) Smoking Status: Never smoker Second Hand Exposure: No; Hx Alcohol Use: No Hx Substance Use: No Preferred Language: [place] Citizen Communication Ability: Effective Visual Impairment: No Limitations Commercial Loan Manager Required: No Beliefs That Will Affect Care: None marital status: marital status details: Chris Galanwill (37) [phone] Current Living Situation: Family Current Living Situation Comment: lives with spouse, son, dog 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 occupational status: 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[employer] 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 at Home: Yes during the past year weight has: decreased > 10 lbs Assistive Devices: None Allergies Allergies Allergy/AdvReac Type Severity Reaction Status Date / Time No Known Allergies Allergy Verified 06/12/22 22:45 Home Meds Home Medications Medication Instructions Recorded Confirmed prenat.vits,teja,[id number] 1 tab PO QAM 02/15/20 06/12/22 cholecalciferol (vitamin D3) 125 125 mcg PO QAM 05/25/20 06/12/22 mcg (5,000 unit) tablet (Vitamin D3) omega 3-dha 250 mg-epa 350 mg-fish 2 cap PO QAM 05/25/20 06/12/22 oil 1,000 mg capsule Results & Data (ED) Vital Signs Vital Signs - 24 hr 06/13/22 01:10 Pulse Rate [Finger] 68 Respiratory Rate 18 Blood Pressure [Right Arm] 104/58 L Blood Pressure Mean [Right Arm] 73 Pulse Oximetry 98 Oxygen Delivery Method Room Air Laboratory Data 06/12/22 22:33 06/12/22 22:33 Lab Results 06/12/22 06/12/22 06/12/22 Range/Units 22:33 22:33 22:33 WBC 7.38 (4.8-10.8) K/ul RBC 3.98 L (4.20-5.40) M/uL Hgb 12.3 (12.0-16.0) g/dl Hct 36.7 L (37.0-47.0) % MCV 92.2 (80.0-100.0) fL MCH 30.9 (25.0-34.0) pg MCHC 33.5 (32.0-36.0) g/dL RDW Std Deviation 46.4 H (36.4-46.3) fL RDW Coeff of Bal 13.7 (11.5-14.5) % Plt Count 234 (130-400) K/uL MPV 9.7 (9.4-12.4) fL Immature Gran % (Auto) 0.5 % Neut % (Auto) 59.4 % Lymph % (Auto) 27.5 % [place] % (Auto) 11.1 % Eos % (Auto) 1.2 % Baso % (Auto) 0.3 % Neut # (Auto) 4.38 (1.40-6.50) K/uL Lymph # (Auto) 2.03 (1.2-3.4) K/uL [place] # (Auto) 0.82 H (0.11-0.59) K/uL Eos # (Auto) 0.09 (0-0.50) K/uL Baso # (Auto) 0.02 (0-0.2) K/uL Immature Gran # (Auto) 0.04 (0.01-0.20) K/uL PT 9.8 (9.0-12.0) Seconds INR 0.9 (0.9-1.1) APTT 23.5 (21.0-31.0) Seconds PTT Ratio 0.9 Sodium 134 L (136-145) mmol/L Potassium 3.6 (3.5-5.1) mmol/L Chloride 104 (98-107) mmol/L Carbon Dioxide 25 (21-32) mmol/L Anion Gap 5 (3-11) BUN 7 (6-23) mg/dl Creatinine 0.43 L (0.6-1.2) mg/dl Est Cr Clr Drug Dosing 199.1 ml/min Est GFR ( Amer) > 150.0 ml/min Est GFR (Non-Af Amer) 131.8 ml/min BUN/Creatinine Ratio 16.3 (10-20) Glucose 97 (70-99(Fasting)) mg/dl Calcium 8.7 (8.6-10.3) mg/dl Magnesium 1.7 (1.7-2.4) mg/dl Total Bilirubin 0.3 (0.2-1.0) mg/dl AST 17 (13-39) U/L ALT 7 (7-52) U/L Alkaline Phosphatase 106 H (34-104) U/L Troponin I High Sens 5.5 (0-14) pg/ml Total Protein 6.6 (6.0-8.3) gm/dl Albumin 3.4 (3.4-5.0) gm/dl Globulin 3.2 (2.5-4.0) gm/dl Albumin/Globulin Ratio 1.1 (0.9-2) Administered Medications Discontinued Medications Potassium Chloride (K Jared / Wtr) 10 meq in 100 mls @ 100 mls/hr IV Q1H EVANGELINA; Protocol Stop: 06/13/22 08:32 Last Admin: 06/13/22 08:54 Dose: Not Given Documented By: Infusion: 06/13/22 08:18 Dose: 0 mls/hr Documented By: Admin: 06/13/22 07:15 Dose: 100 mls/hr Documented By: Infusion: 06/13/22 07:13 Dose: 0 mls/hr Documented By: Admin: 06/13/22 06:13 Dose: 100 mls/hr Documented By: Infusion: 06/13/22 06:10 Dose: 0 mls/hr Documented By: Admin: 06/13/22 05:10 Dose: 100 mls/hr Documented By: RAMY Magnesium Sulfate/Dextrose (Magnesium Sulfate / D5w) 1 gm in 100 mls @ 50 mls/hr IV Q2H EVANGELINA Stop: 06/13/22 08:32 Last Admin: 06/13/22 07:47 Dose: Not Given Documented By: YOEL Prenat Multivit/Cotton/Iron/Folic Ac ( Vitamin 1 Tab) 1 tab PO QAM EVANGELINA Stop: 07/13/22 08:59 Last Admin: 06/13/22 08:56 Dose: 1 tab Documented By: YOEL Vitamin D (Cholecalciferol 5,000 Units 125 Mcg Tab) 5,000 units PO QAM [facility] Stop: 07/13/22 08:59 Last Admin: 06/13/22 08:56 Dose: 5,000 units Documented By: YOEL Imaging Data Radiologist's Impression: Venous Doppler Study 06/13/22 01:43 Exam(s): US VENOUS RIGHT LOWER EXTREMITY EXAM: US Duplex Right Lower Extremity Veins CLINICAL HISTORY: Reason for exam: eval for DVT. TECHNIQUE: Real-time duplex ultrasound scan of the right lower extremity veins integrating B-mode two-dimensional vascular structure, Doppler spectral analysis, color flow Doppler imaging and compression. COMPARISON: None. FINDINGS: Deep veins: Diffuse homogeneous echoes demonstrated within the right superficial femoral vein with otherwise normal color flow within normal compressibility and normal respiratory variation consistent with rouleaux formation. Normal augmentation. No DVT in the visualized common femoral, femoral, proximal deep femoral or popliteal veins. The veins demonstrate normal color flow, are normally compressible, with normal phasic flow and/or augmentation response. Superficial veins: Unremarkable. No thrombus in the visualized great saphenous vein. Soft tissues: No acute findings. No popliteal cyst. IMPRESSION: No ultrasonographic evidence of deep venous thrombosis involving the right lower extremity. Electronically signed by: Reyna Tabares MD 06/13/22 04:01 AM Discharge Plan Visit Data Chief Complaint: Cardiac Assessment Stated Complaint: HEART ISSUE, PASSING OUT, 36 WEEKS PREG ED Provider: Concepción Han Discharge Problem: Near syncope, 36 weeks gestation of Patient Disposition: Admitted As Inpatient Discharge Instructions Interventions: ED Discharge Assessment Last Done: 06/13/22 04:03
[2022-06-13] MEDS: POTASSIUM CHLORIDE / WTR 10 MEQ/100 ML PLCT IV SCH ×4 (05:10→08:54)
[2022-06-13] MEDS ORDERED: CHOLECALCIFEROL 5,000 UNITS 125 MCG TAB PO SCH (09:00)
[2022-06-13] MEDS ORDERED: PRENATAL VITAMIN 1 TAB PO SCH (09:00)
--- NOTE | 2022-06-13 12:36 | Discharge Summary ---
Date of Service June 13, 2022 Admission HPI Per Admitting Provider Mago is a 36-year-old at 36 weeks who presents to the hospital for further evaluation of an episode of presyncope that she had this afternoon. Patient reports she was standing at home when she felt her heart "stop beating." She then began feeling dizzy and felt her vision narrowing, as though she were slowly blacking out. She then called for her , who is in the next room, who then brought her to the hospital for evaluation. ROS + nausea, and shaking chills. She denies headache, fall, loss of consciousness, chest pain, palpitations, shortness of breath, abdominal pain, diaphoresis, recent illness, or paresthesias in extremities. She denies prior history of syncope or presyncope. She does report a prior episode of SVT (s/p ablation x2, no recurrence/chronic meds; sees Dr. Jeremi Varela in [place] for routine surveillance) that occurred 15 years ago. Patient also has mitral valve prolapse (most recent echo 01/22/2022 shows trace MR without mitral valve stenosis, EF = 60 to 65%, no other valvular abnormalities). She denies any family history of cardiac related at a young age or any cardiomyopathy. She has no other medical history and was not on any chronic medications prior to her . In the ED, vitals were within normal limits. Labs revealed Na+ of 134, K+ of 3.6, alk phos of 106. No leukocytosis, thrombocytopenia or anemia. Creatinine of 0.43, which appears to be her baseline. Initial troponin was negative. Patient also reported some varicose veins in the pubic area, right-sided medial thigh pain and was sent for venous Doppler study which was negative for DVT. On admission, patient is resting comfortably on room air with her at bedside. She corroborates HPI. ROS+ no new symptoms. She has had no recurrence of her heart skipping. Admission Exam Per Admitting Provider General: No acute distress HEENT: PERRLA. Normal conjunctiva, anicteric sclera. Oropharynx normal. Respiratory: Normal respiratory effort, CTABL. Cardiovascular: RRR without murmurs, gallops, or rubs. 1+ nonpitting pedal edema bilaterally. GI: Normal bowel sounds heard on auscultation. Nontender x4 quadrants Neuro: Alert and oriented x3. Principal Diagnosis near syncope Discharge Exam Constitutional WD/WN, vitals as above Eyes PERRL, conjunctivae normal, anicteric sclerae ENMT external ear and nose normal, oropharynx normal Neck trachea midline, no thyromegaly Respiratory normal respiratory effort, lungs clear to auscultation Cardiovascular RRR, no murmur, no edema Gastrointestinal (Abdomen) normal bowel sounds, soft, nontender, no hepatosplenomegaly Musculoskeletal no cyanosis or clubbing, extremities motor strength 5/5 Skin no rashes, warm and dry Neurologic patellar DTR's 2+ bilat, sensation intact Psychiatric A+Ox3, euthymic affect Discharge Data Allergies Allergy/AdvReac Type Severity Reaction Status Date / Time No Known Allergies Allergy Verified 06/12/22 22:45 Consultations 06/13/22 01:40 ED Decision to Admit Stat 06/13/22 04:33 Consult Obstetrics Routine Ordered Studies 06/13/22 01:43 US venous duplex leg [US venous doppler LE RT] Stat Venous Doppler Study 06/13/22 01:43 Exam(s): US VENOUS RIGHT LOWER EXTREMITY EXAM: US Duplex Right Lower Extremity Veins CLINICAL HISTORY: Reason for exam: eval for DVT. TECHNIQUE: Real-time duplex ultrasound scan of the right lower extremity veins integrating B-mode two-dimensional vascular structure, Doppler spectral analysis, color flow Doppler imaging and compression. COMPARISON: None. FINDINGS: Deep veins: Diffuse homogeneous echoes demonstrated within the right superficial femoral vein with otherwise normal color flow within normal compressibility and normal respiratory variation consistent with rouleaux formation. Normal augmentation. No DVT in the visualized common femoral, femoral, proximal deep femoral or popliteal veins. The veins demonstrate normal color flow, are normally compressible, with normal phasic flow and/or augmentation response. Superficial veins: Unremarkable. No thrombus in the visualized great saphenous vein. Soft tissues: No acute findings. No popliteal cyst. IMPRESSION: No ultrasonographic evidence of deep venous thrombosis involving the right lower extremity. Electronically signed by: Reyna Tabares MD 06/13/22 04:01 AM Lab Results 06/12/22 06/12/22 06/12/22 Range/Units 22:33 22:33 22:33 WBC 7.38 (4.8-10.8) K/ul RBC 3.98 L (4.20-5.40) M/uL Hgb 12.3 (12.0-16.0) g/dl Hct 36.7 L (37.0-47.0) % MCV 92.2 (80.0-100.0) fL MCH 30.9 (25.0-34.0) pg MCHC 33.5 (32.0-36.0) g/dL RDW Std Deviation 46.4 H (36.4-46.3) fL RDW Coeff of Bal 13.7 (11.5-14.5) % Plt Count 234 (130-400) K/uL MPV 9.7 (9.4-12.4) fL Immature Gran % (Auto) 0.5 % Neut % (Auto) 59.4 % Lymph % (Auto) 27.5 % Price % (Auto) 11.1 % Eos % (Auto) 1.2 % Baso % (Auto) 0.3 % Neut # (Auto) 4.38 (1.40-6.50) K/uL Lymph # (Auto) 2.03 (1.2-3.4) K/uL Price # (Auto) 0.82 H (0.11-0.59) K/uL Eos # (Auto) 0.09 (0-0.50) K/uL Baso # (Auto) 0.02 (0-0.2) K/uL Immature Gran # (Auto) 0.04 (0.01-0.20) K/uL PT 9.8 (9.0-12.0) Seconds INR 0.9 (0.9-1.1) APTT 23.5 (21.0-31.0) Seconds PTT Ratio 0.9 Sodium 134 L (136-145) mmol/L Potassium 3.6 (3.5-5.1) mmol/L Chloride 104 (98-107) mmol/L Carbon Dioxide 25 (21-32) mmol/L Anion Gap 5 (3-11) BUN 7 (6-23) mg/dl Creatinine 0.43 L (0.6-1.2) mg/dl Est Cr Clr Drug Dosing 199.1 ml/min Est GFR ( Amer) > 150.0 ml/min Est GFR (Non-Af Amer) 131.8 ml/min BUN/Creatinine Ratio 16.3 (10-20) Glucose 97 (70-99(Fasting)) mg/dl Calcium 8.7 (8.6-10.3) mg/dl Magnesium 1.7 (1.7-2.4) mg/dl Total Bilirubin 0.3 (0.2-1.0) mg/dl AST 17 (13-39) U/L ALT 7 (7-52) U/L Alkaline Phosphatase 106 H (34-104) U/L Troponin I High Sens 5.5 (0-14) pg/ml Total Protein 6.6 (6.0-8.3) gm/dl Albumin 3.4 (3.4-5.0) gm/dl Globulin 3.2 (2.5-4.0) gm/dl Albumin/Globulin Ratio 1.1 (0.9-2) SARS-CoV-2, RNA, NAAT (NEGATIVE) 06/13/22 Range/Units 02:30 WBC (4.8-10.8) K/ul RBC (4.20-5.40) M/uL Hgb (12.0-16.0) g/dl Hct (37.0-47.0) % MCV (80.0-100.0) fL MCH (25.0-34.0) pg MCHC (32.0-36.0) g/dL RDW Std Deviation (36.4-46.3) fL RDW Coeff of Bal (11.5-14.5) % Plt Count (130-400) K/uL MPV (9.4-12.4) fL Immature Gran % (Auto) % Neut % (Auto) % Lymph % (Auto) % Price % (Auto) % Eos % (Auto) % Baso % (Auto) % Neut # (Auto) (1.40-6.50) K/uL Lymph # (Auto) (1.2-3.4) K/uL Price # (Auto) (0.11-0.59) K/uL Eos # (Auto) (0-0.50) K/uL Baso # (Auto) (0-0.2) K/uL Immature Gran # (Auto) (0.01-0.20) K/uL PT (9.0-12.0) Seconds INR (0.9-1.1) APTT (21.0-31.0) Seconds PTT Ratio Sodium (136-145) mmol/L Potassium (3.5-5.1) mmol/L Chloride (98-107) mmol/L Carbon Dioxide (21-32) mmol/L Anion Gap (3-11) BUN (6-23) mg/dl Creatinine (0.6-1.2) mg/dl Est Cr Clr Drug Dosing ml/min Est GFR ( Amer) ml/min Est GFR (Non-Af Amer) ml/min BUN/Creatinine Ratio (10-20) Glucose (70-99(Fasting)) mg/dl Calcium (8.6-10.3) mg/dl Magnesium (1.7-2.4) mg/dl Total Bilirubin (0.2-1.0) mg/dl AST (13-39) U/L ALT (7-52) U/L Alkaline Phosphatase (34-104) U/L Troponin I High Sens (0-14) pg/ml Total Protein (6.0-8.3) gm/dl Albumin (3.4-5.0) gm/dl Globulin (2.5-4.0) gm/dl Albumin/Globulin Ratio (0.9-2) SARS-CoV-2, RNA, NAAT NEGATIVE (NEGATIVE) Hospital Course (1) Pre-syncope: 36 F at 36 weeks presenting to the hospital for episode of presyncope without fall. Now admitted for observation for telemetric supervision. Presyncopal episode Prodromal vision tunneling, no trauma or LOC. CBC and CMP unremarkable, vital signs stable during admission at time of discharge. Does have a history of SVT status post ablation x2. Duplex ultrasound of the right lower extremity negative. Potassium repleted Patient had no further episodes of presyncope during admission. movement intact, no vaginal discharge, and no sustained contractions. Did have some irregular contractions in the ED which resolved by time of admission. Most likely Wilder Alonso contractions. TECHNOLOGY LAB TEACHER special effects person consulted and states that patient is safe to return home. Most likely due to dehydration from being 36 weeks . Recommend patient stay well-hydrated and to follow-up with TECHNOLOGY LAB TEACHER in 1 to 2 days considering she missed her appointment that was scheduled today. Follow-up with PCP in 1 week. (2) Viable : Total Time Total Time Spent Total Time Spent (In Minutes): <30 Discharge Plan Discharge Items Patient Disposition: Home - Self-Care Reason For Visit: PRESYNCOPE Discharge Diagnosis: Presyncope secondary tdehydration Activity: Resume your previous activity Non-emergency contact: Primary Care Provider and Manager Family Call non-emergency contact if: your pain is worsening, your pain is unusual for you and your temperature is above 101.5 Follow-up/Referrals: Leonardo Cifuentes MD [Primary Care Provider] - (Patient scheduled follow ups. follow up with TECHNOLOGY LAB TEACHER will be 06/14 @ 8:50am) Diet: Regular OB Addtl Attending Provider Instructions: You were admitted to the hospital for presyncope secondary to dehydration. You were treated with fluids. A discharge summary will be sent to your primary care physician to ensure continuity of care. Please bring this discharge summary with you to your next office appointment so that your provider can review it at that time. Follow-up appointments: * Make a follow-up appointment with your PCP within the next week. It is very important that you follow up with them shortly after discharge from the hospital. * Please make a follow-up appointment with TECHNOLOGY LAB TEACHER in 1 to 2 days. * Keep all your follow-up appointments as already scheduled. If you cannot make an appointment, notify your provider. Medications: Your medication list has been reviewed and reconciled upon discharge to ensure accuracy and continuity of care. An updated list of all your medications is included with your hospital discharge paperwork. Please review this list closely, and make note of any changes. * No new changes to your medication was made during this admission. * If you have any issues filling these prescriptions, please call [phone] and ask to leave a message for Dr. Vargas. * Take your medications as instructed; do not skip a dose of your medicines. Make sure all of your doctors know every medicine you are taking (including wrcr-xgx-lwnncre medicines, vitamins, and supplements). Call your primary care provider before taking any new medicines (including over- the-counter medicines, vitamins, and supplements), because some of these may interact with your current medications, or may make your symptoms worse. Tell your primary care provider if you cannot afford your medications. CONTACT YOUR PRIMARY CARE PROVIDER if you experience any of the following: * Worsening of symptoms * Fever, chills, or fatigue * Difficulty following your treatment plan, or difficulty taking medications CALL 911 OR GO TO THE EMERGENCY DEPARTMENT if you experience any of the following: * Sudden, severe abdominal pain or nausea/vomiting * Severe chest pain, or chest pain that radiates (moves) to your jaw or arm * Sudden, severe shortness of breath or difficulty breathing Thank you for allowing us to participate in your care. Pending Studies at Discharge: No Stand-Alone Forms: My [facility], Smoking Cessation Medications and DC Order Prescriptions: Continued prenat.vits,teja,xse-[id number] Tablet 1 tab PO QAM cholecalciferol (vitamin D3) [Vitamin D3] 125 mcg (5,000 unit) Tablet 125 mcg PO QAM omega 8-efx-iwx-fish oil 250-350-1,000 mg Capsule 2 cap PO QAM Discharge Orders: Discharge Order (Routine); Ordered 06/13/22 Ordered By: Belkis Stanton Admission Data Admit Date/Time: 06/13/22 02:02 Attending Provider: Toby Carrera Admit Provider: Jessie Salas Primary Care Provider: Leonardo Cifuentes Other Providers: Harsh Hatch ; Lina Lockhart ; Patrick Mitchell ; Mirella Galeano ; Trudi Tesfaye ; Regi Mcgill ; Jermain Juarez ; Liza Pierce ; Melvin Akins ; Payal Marin ; Shalonda Ma ; Bernard Madrigal Other Interventions: Discharge Summary Assessment (RN) Last Done: 06/13/22 13:16 Supervising Physician Co-Signing Physician Notes I personally examined the patient and verified all alegre points of history and exam, discussed case, and agree with decision making with Dr Vargas. Feeling better, has been out of bed to the bathroom, feels up to going home. No further lightheadedness/weakness/faintness/visual changes. Baby moving, no cramping, no vaginal bleeding or discharge. Vitals noted, in general she is awake and alert pleasant no distress. HEENT normocephalic atraumatic mucous membranes moist. Breathing unlabored no accessory muscle use good effort. Skin shows no rashes no pallor or icterus. Neuro without focal deficits. Orthostatic/dehydration mediated near syncopediscussed physiologic changes late in that would make her far more prone to an orthostatic event, discuss ed mitigation strategies, hydration strategies, etc. Answered all questions the best my ability. Safe/stable for home. otherwise as above Resident Activity Tracking Resident Involvement: Resident Care Provided Care Provided: Adult Hospital Medicine
--- NOTE | 2022-06-13 18:58 | Billing Data ---
Date of Service June 13, 2022 Coding Level of Care Code 72385 IN/OBS DISCH 30 MIN/LESS
--- NOTE | 2022-06-14 05:48 | Electrocardiogram Report ---
Test Reason : Blood Pressure : / mmHG Vent. Rate : 087 BPM Atrial Rate : 087 BPM P-R Int : 124 ms QRS Dur : 072 ms QT Int : 352 ms P-R-T Axes : 071 047 025 degrees QTc Int : 423 ms Poor data quality, interpretation may be adversely affected Normal sinus rhythm with sinus arrhythmia Low voltage QRS Nonspecific ST abnormality Abnormal ECG No previous ECGs available Confirmed by Liam Stafford ([id number]) on 06/14/2022 5:47:46 AM Referred By: REFERRED SELF Confirmed By:Liam Stafford
--- NOTE | 2022-06-16 02:08 | Billing Data ---
Date of Service June 16, 2022 Coding Level of Care Code 30849 INT INP/OBS CARE
== END 2022-06-13 14:27 | disposition home or self-care (01) ==
LOC: ED 22:07 → 2E 22:07 → SUATTDRO 06-13 02:02 → 2E 06-13 04:03

== ENCOUNTER 2022-07-04 05:42 | Inpatient (IN) ==
--- NOTE | 2022-06-25 11:59 | Anesthesiology Consultation ---
Date of Service June 25, 2022 Assessment & Plan (1) Encounter for pre-operative examination: Plan - will attempt to obtain most recent cardiology note, Dr Jeremi Varela- [place] ([place]). - discharge summary 06/13/22 [place]: "...Presyncopal episode Prodromal vision tunneling, no trauma or LOC CBC and CMP unremarkable, vital signs stable during admission at time of discharge Does have a history of SVT status post ablation x2 Duplex ultrasound of the right lower extremity negative Potassium replete Patient had no further episodes of presyncope during admission movement intact, no vaginal discharge, and no sustained contractions. Did have some irregular contractions in the ED which resolved by time of admission. Most likely [place] Alonso contractions HOUSING LIAISON power distribution engineer consulted and states that patient is safe to return home Most likely due to dehydration from being 36 weeks . Recommend patient stay well-hydrated and to follow-up with HOUSING LIAISON in 1 to 2 days considering she missed her appointment that was scheduled todayFollow-up with PCP in 1 week..." - 05/28/20 SAB L3-L4 1 attempt. Post-op anesthesia progress note: "patient had a tachycardic episode in the OR. She felt nauseous and "shaky." She is awake and stable in recovery." - COVID screening: Per reference assistant on 06/25/2022: Travel screen negative, no known COVID-19 positive contacts or current COVID-19 related symptoms in past 2 weeks. To surgeon's discretion if preop COVID testing is needed. Chart Review Chart Review: Pending: Refer to Additional Notes / Consult section and Patient NOT seen in Pre Admission Testing History Surgery Operation Date: 07/04/22 07:30 Proposed Procedures p Section (Delivery of Baby Through Abdominal Incision) - Bernard Madrigal MD Height/Weight Height: 5 ft 8 in Weight: 73.482 kg Allergies Allergy/AdvReac Type Severity Reaction Status Date / Time No Known Allergies Allergy Verified 06/25/22 11:16 Medications Home Medications Medication Instructions Recorded Confirmed Last Taken prenat.vits,teja,vlo-ulfh-zbrtu 1 tab PO QAM 02/15/20 06/25/22 06/12/22 cholecalciferol (vitamin D3) 125 125 mcg PO QAM 05/25/20 06/25/22 06/12/22 mcg (5,000 unit) tablet (Vitamin D3) omega 3-dha 250 mg-epa 350 mg-fish 2 cap PO QAM 05/25/20 06/25/22 06/12/22 oil 1,000 mg capsule ferrous sulfate 325 mg (65 mg 325 mg PO UD 06/25/22 06/25/22 Unknown iron) tablet (Iron (ferrous sulfate)) Past Medical History Medical History Anxiety Breech presentation H/O supraventricular tachycardia hx s/p ablation- follows w/ Dr Jeremi Varela- [place] ([place])- last visit 03/2022 History of chicken pox History of COVID-19 09/2021- chills, resolved Hx of migraines Remote hx Mitral valve prolapse Dx age 21 (Dr[facility] Jeremi [facility]) Nausea and vomiting after administration of anesthetic agent Pre-syncope 06/2022-was seen and treated at [facility]- ER Past Family History Family History Grandfather (Maternal) Cancer of kidney Heart disease Grandfather (Paternal) Stroke Mother Hypothyroid Denies family history of Ovarian cancer Breast cancer Colorectal cancer Past Surgical History Surgical History H/O wisdom tooth extraction History of esophagogastroduodenoscopy (EGD) History of removal of cyst S/P ablation of ventricular arrhythmia for issues w/ SVT x 2- last one 11 yrs ago - S/P section Social History Smoking Status: Former smoker tobacco type: cigarettes Smoking cigarettes per day: quit 15 yrs ago Do You Dip or Chew Tobacco: No Hx Alcohol Use: No Hx Substance Use: No substance use type: does not use Lab Results Anesthesia Preop Results Results Anesthesia Widget: WBC 7.38 K/ul (4.8-10.8) 06/12/22 Hgb 12.3 g/dl (12.0-16.0) 06/12/22 Hct 36.7 % (37.0-47.0) L 06/12/22 Plt 234 K/uL (130-400) 06/12/22 Na 134 mmol/L (136-145) L 06/12/22 K 3.6 mmol/L (3.5-5.1) 06/12/22 Cl 104 mmol/L (98-107) 06/12/22 CO2 25 mmol/L (21-32) 06/12/22 BUN 7 mg/dl (6-23) 06/12/22 Creat 0.43 mg/dl (0.6-1.2) L 06/12/22 Glucose Level 97 mg/dl (70-99(Fasting)) 06/12/22 PT 9.8 Seconds (9.0-12.0) 06/12/22 PTT 23.5 Seconds (21.0-31.0) 06/12/22 INR 0.9 (0.9-1.1) 06/12/22 SARS-CoV-2, RNA, NAAT NEGATIVE (NEGATIVE) 06/13/22 Testing Electrocardiogram Date: 06/12/22 Poor data quality NSR with sinus arrhythmia, rate 87 bpm Low voltage QRS Nonspecific ST abnormality Echocardiogram Date: 01/22/22 EF 60-65% No regional wall motion abnormalities No LVH Mild pulmonic valvular regurgitation Other Testing Venous doppler 06/13/22 No ultrasonographic evidence of deep venous thrombosis involving the right lower extremity.
[2022-07-04] MEDS ORDERED: LACTATED RINGER'S 1,000 ML IV SCH (05:45)
[2022-07-04] MEDS ORDERED: ceFAZolin 2000MG 2,000 MG/15 ML SYR IV SCH (06:00)
[2022-07-04] MEDS ORDERED: CITRIC ACID/SODIUM CITRATE 15 ML UDC PO SCH (06:00)
[2022-07-04 06:28] LABS: Basophils # (auto) 0.02 K/uL (0-0.2); Basophils % (auto) 0.3 %; Eosinophils # (auto) 0.04 K/uL (0-0.50); Eosinophils % (auto) 0.7 %; Hemoglobin 11.8 g/dl (12.0-16.0); Immature Granulocytes # (auto) 0.03 K/uL (0.01-0.20); Immature Granulocytes % (auto) 0.5 %; Lymphocytes # (auto) 2.11 K/uL (1.2-3.4); Lymphocytes % (auto) 35.5 %; Mean Corpuscular Hemoglobin 30.9 pg (25.0-34.0); Mean Corpuscular Hgb Conc 33.7 g/dL (32.0-36.0); Mean Corpuscular Volume 91.6 fL (80.0-100.0); Mean Platelet Volume 10.3 fL (9.4-12.4); Monocytes # (auto) 0.64 K/uL (0.11-0.59); Monocytes % (auto) 10.8 %; Neutrophils # (auto) 3.11 K/uL (1.40-6.50); Neutrophils % (auto) 52.2 %; Platelet Count 201 K/uL (130-400); RDW Coefficient of Variation 13.4 % (11.5-14.5); RDW Standard Deviation 44.5 fL (36.4-46.3); Red Blood Count 3.82 M/uL (4.20-5.40); White Blood Count 5.95 K/ul (4.8-10.8)
[2022-07-04] MEDS ORDERED: OXYTOCIN 10 UNITS/ML 10ML VIAL ONE (06:51)
[2022-07-04] MEDS ORDERED: fentaNYL citrate PF 100 MCG/2 ML VIAL ONE (06:52)
[2022-07-04] MEDS ORDERED: MoRPHine SULFATE PF 1 MG/ML 10 ML AMP/VIAL ONE (06:52)
[2022-07-04] MEDS ORDERED: ONDANSETRON INJ 2 MG/ML 2 ML VIAL ONE (06:57)
--- NOTE | 2022-07-04 07:24 | History & Physical Report ---
Date of Service July 04, 2022 Assessment & Plan (1) Supervision of elderly multigravida: (2) Previous delivery affecting , antepartum: Plan 36yo at 39 weeks GA presents for scheduled repeat LTCS. 1. Fetus: Cat 1 2. Delivery: Scheduled repeat LTCS 3. Vitals: WNL Admission and Anticipated Discharge Date Admission Date: July 04, 2022 History of Present Illness Primary Care Provider: Leonardo Cifuentes MD 36yo at 39 weeks GA presents for scheduled repeat LTCS. complications: Prior - desires repeat C/S SCHEDULED FOR 07/06/[address] OBI KUO-BETTIE C/S RESCHEDULED TO 07/04/[address] CHOW-OK PER DR. CHOW AND KIT MVP/SVT cardiac ablation x 2 - will see material control specialist in [facility] Weekly NST's @ 36 weeks left inguinal hernia with fat and varicosities. declines tdap and flu vaccines Hx of ICP OB Labs: Blood Type O Positive 11/30/21 Antibody Screen NEGATIVE 11/30/21 Hemoglobin 12.3 g/dl (12.0-16.0) 06/12/22 Hematocrit 36.7 % (37.0-47.0) L 06/12/22 Mean Corpuscular Volume 92.2 fL (80.0-100.0) 06/12/22 Platelet Count 234 K/uL (130-400) 06/12/22 Rubella IgG Antibody Immune (Immune) 11/30/21 Rapid Plasma Reagin Nonreactive (Nonreactive) 11/30/21 Hepatitis B Surface Antigen. NON-REACTIVE (NON-REACTIVE) 11/30/21 Hepatitis C Antibody (EIA) NON-REACTIVE (NON-REACTIVE) 11/30/21 HIV (1&2) Ag and Ab Confirmation NON-REACTIVE (NON-REACTIVE) 11/30/21 Glucose 1 Hour 50 gm Load 119 mg/dl (70-130) 04/17/22 OB Optional Labs: Chlamydia trachomatis RNA Not Detected (NotDetected) 11/30/21 Neisseria gonorrhoeae RNA Not Detected (NotDetected) 11/30/21 Thyroid Stimulating Hormone (TSH) 2.34 uIU/mL (0.30-4.50) 03/13/22 Labs Reviewed: Declines cf/sma/cfdna--mln declines quad/afp - sln Allergies Allergy/AdvReac Type Severity Reaction Status Date / Time No Known Allergies Allergy Verified 07/03/22 09:17 Home Medications Medication Instructions Recorded Confirmed Type prenat.vits,teja,yjv-rbmw-lsaxu 1 tab PO QAM 02/15/20 07/03/22 History cholecalciferol (vitamin D3) 125 125 mcg PO QAM 05/25/20 07/03/22 History mcg (5,000 unit) tablet (Vitamin D3) omega 3-dha 250 mg-epa 350 mg-fish 2 cap PO QAM 05/25/20 07/03/22 History oil 1,000 mg capsule ferrous sulfate 325 mg (65 mg 325 mg PO UD 06/25/22 07/03/22 History iron) tablet (Iron (ferrous sulfate)) Patient History Medical History Anxiety Breech presentation H/O supraventricular tachycardia hx s/p ablation- follows w/ Dr Jeremi Varela- [place] ([place])- last visit 03/2022 History of chicken pox History of COVID-19 09/2021- chills, resolved Hx of migraines Remote hx Mitral valve prolapse Dx age 21 (Dr. Jeremi Malik [facility]) Nausea and vomiting after administration of anesthetic agent Pre-syncope 06/2022-was seen and treated at [facility]- ER Surgical History H/O wisdom tooth extraction History of esophagogastroduodenoscopy (EGD) History of removal of cyst S/P ablation of ventricular arrhythmia for issues w/ SVT x 2- last one 11 yrs ago - S/P section Family History Grandfather (Maternal) Cancer of kidney Heart disease Grandfather (Paternal) Stroke Mother Hypothyroid Denies family history of Ovarian cancer Breast cancer Colorectal cancer Social History Smoking Status: Never smoker Cigarettes Per Day: quit 15 yrs ago; Second Hand Exposure: No; Do You Dip or Chew Tobacco: No; Tobacco Cessation Education Requested by Patient: No Hx Alcohol Use: No Hx Substance Use: No Preferred Language: Latvian Communication Ability: Effective Visual Impairment: No Limitations Training Engineer Required: No Beliefs That Will Affect Care: None marital status: marital status details: Chris Bowen (37) [phone] Current Living Situation: Spouse and Family Current Living Situation Comment: lives with spouse, son, current occupational status: 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-[employer] Other Information That Helps Us Care for You: No Feels Safe at Home: Yes Safety Concerns: Feels Safe At This Time Diet: regular during the past year weight has: decreased > 10 lbs Assistive Devices: None Physical Exam Respiratory: normal respiratory effort; no respiratory distress, no labored breathing and no retractions Cardiovascular: Rate/Rhythm: regular rate and regular rhythm Gastrointestinal (Abdomen): Inspection/Auscultation: abdomen normal to inspection Percussion/Palpation: abdomen soft; abdomen nontender, no guarding and abdomen not rigid Genitourinary: OB Exam Monitor Tracing: + external FHT monitor used, + external uterine monitor used, + category I and + normal FHT variability; no early decelerations present, no late decelerations present and no variable decelerations Results & Data Vital Signs (Past 12 Hours) Vital Signs Temp Pulse Resp BP 07/04/22 05:55 36.8 C 18 07/04/22 07:05 80 125/73 07/04/22 05:50 77 126/73 Code Status & VTE Plan VTE Prophylaxis Plan VTE Prophylaxis will be ordered: No Reason for no VTE drug order: Treatment not indicated Coding Level of Care Code None Diagnoses Supervision of elderly multigravida O09.529 Previous delivery affecting , antepartum O34.219
[2022-07-04] MEDS ORDERED: MEPERIDINE HCL 25 MG/ML CARP/VIAL IV PRN (07:55)
[2022-07-04] MEDS ORDERED: NALOXONE HCL 0.4 MG/1 ML VIAL/CARP IV PRN (07:55)
[2022-07-04] MEDS ORDERED: ePHEDrine sulfate 50 MG/ML AMP IV PRN (07:55)
[2022-07-04] MEDS ORDERED: LACTATED RINGER'S 500 ML IV PRN (07:55)
[2022-07-04] MEDS ORDERED: diphenhydrAMINE 50 MG/ML VIAL IV PRN (07:55)
[2022-07-04] MEDS ORDERED: ONDANSETRON INJ 2 MG/ML 2 ML VIAL IV PRN (07:55)
[2022-07-04] MEDS ORDERED: NALBUPHINE HCL INJ 10 MG/ML AMP IV PRN (07:55)
[2022-07-04] MEDS ORDERED: NALOXONE HCL 0.08 MG in SYRINGE 1.8 ML IV PRN (07:55)
[2022-07-04] MEDS ORDERED: NALOXONE HCL 1 MG in SODIUM CHLORIDE 0.9% 1000ML 1,000 ML IV PRN (07:55)
[2022-07-04] MEDS ORDERED: MoRPHine SULFATE PF 1 MG/ML 10 ML AMP/VIAL INT SPINAL ONE (07:55)
[2022-07-04] MEDS ORDERED: SODIUM CHLORIDE 0.9% 1000ML 1,000 ML IV SCH (08:00)
[2022-07-04] MEDS ORDERED: DC INTRASPINAL MORPHINE SCH (08:00)
[2022-07-04] MEDS ORDERED: NO NARCOTICS OR SEDATIVES SCH (08:00)
[2022-07-04] MEDS ORDERED: MAGNESIUM HYDROXIDE SUSP 30 ML UDC PO PRN (08:21)
[2022-07-04] MEDS ORDERED: HYDROCORTISONE ACETATE 25 MG SUPP PR PRN (08:21)
[2022-07-04] MEDS ORDERED: BENZOCAINE 20% AER SPR 82.5 GM CAN EXT PRN (08:21)
[2022-07-04] MEDS ORDERED: SENNA 8.6 MG TAB PO PRN (08:21)
[2022-07-04] MEDS ORDERED: DIPHTHERIA/TETANUS/PERTUSSIS 0.5mL SYR/VIAL (Age 7+yrs) IM ONE (08:21)
--- NOTE | 2022-07-04 08:34 | Post Operative Brief Note ---
PG Immediate Post Op with CF Date of Surgery July 04, 2022 Pre & Post Diagnosis Operation Date: 07/04/22 07:30 Pre-Op Diagnosis: 1. Term 2. Repeat Post-Op Diagnosis: Same I identified the patient and participated in the time-out.: Yes Procedure Operation Date: 07/04/22 07:30 Actual Procedures p Section in LD; Repeat Lower Uterine Transverse Section for the of a live girl infant. (Bilateral) - Bernard Madrigal MD Surgeon Bernard Madrigal MD Panelbeater Dr. Galeano Estimated Blood Loss 500 Findings Consistent with Post-Op Diagnosis Specimens Specimen Description: 1. Placenta: Hold 2. Cord Blood Obtained Drains Vazquez Catheter (Vazquez catheter inserted without difficulty. Patent and draining clear yellow urine. ) OB Procedure charges OB Charges 17965
--- NOTE | 2022-07-04 09:42 | Anesthesiology Progress Note ---
Date of Service July 04, 2022 Anesthesia Post Procedure Vital Signs Vital Signs: Temp Pulse Resp BP Pulse Ox 07/04/22 09:36 18 07/04/22 09:30 20 07/04/22 09:16 20 07/04/22 09:06 18 07/04/22 08:56 18 07/04/22 08:46 98.4 F 20 07/04/22 05:55 98.2 F 18 07/04/22 09:36 99 07/04/22 09:36 64 07/04/22 09:36 64 120/66 07/04/22 09:31 60 98 07/04/22 09:26 62 113/64 97 07/04/22 09:21 69 97 07/04/22 09:16 98 07/04/22 09:16 66 07/04/22 09:16 63 129/59 L 07/04/22 09:11 66 98 07/04/22 09:08 67 116/57 L 07/04/22 09:06 68 98 07/04/22 09:01 73 98 07/04/22 08:56 77 120/56 L 98 07/04/22 08:51 71 98 07/04/22 08:46 76 100 07/04/22 08:41 82 100 07/04/22 08:42 184 H 134/92 07/04/22 07:26 22 07/04/22 07:26 98.1 F 22 07/04/22 07:05 80 125/73 07/04/22 05:50 77 126/73 Transfer of Care Handoff Completed per policy Notes Mental Status: alert / awake / arousable and participated in evaluation Nausea / Vomiting: adequately controlled Pain: adequately controlled Airway Patency, RR, SpO2: stable & adequate BP & HR: stable & adequate Hydration State: stable & adequate Neuraxial Anesthesia: was administered and sensory block is resolving Anesthetic Complications: no major complications apparent and Pt Satisfied with anesthetic care
--- NOTE | 2022-07-04 10:13 | Operative Report (OR) ---
DATE OF SERVICE: 07/04/2022. PROCEDURE: Repeat low transverse section. SURGEON: Bernard Madrigal MD. SIGNS AND DISPLAYS SALES REPRESENTATIVE: Mirella Galeano MD. PREOPERATIVE DIAGNOSES: 1. Term at 39 weeks 0 days gestational age. 2. Repeat section with history of x1. ESTIMATED BLOOD LOSS: 500 mL. DRAINS: Vazquez catheter. FLUIDS: Continuous lactated Ringer. URINE OUTPUT: Per Vazquez catheter. COMPLICATIONS: None. FINDINGS: Viable female with weight and Apgars pending. Normal-appearing uterus, ovaries an d bilateral fallopian tubes. DESCRIPTION OF PROCEDURE: The patient was taken to the operating room after consents were ensured. Upon presentation, she was properly identified. Spinal anesthesia was obtained without difficulty. The patient was then prepped and draped in normal sterile fashion. Preprocedural timeout was perform ed. A Pfannenstiel incision was then made with a knife. This was carried down to underlying fascia with the Bovie. The fascia was nicked at the midline with a knife and extended laterally with pickup s and Granados scissors. The superior aspect of the fascia was grasped with Kochers x2, elevated off the underlying rectus muscles using blunt dissection and Granados scissors. Inferior aspect of the fascia w as grasped with Kochers x2, elevated off the underlying rectus muscles using blunt dissection. The a bdomen was entered bluntly and placed on stretch to provide adequate room for delivery. A bladder bl nick was inserted. A low transverse uterine incision was then made with a knife. The uterine cavity was then entered bluntly and placed on stretch to provide adequate room for delivery. Clear fluid wa s noted at time of rupture. Head of the delivered without difficulty, body and shoulders arias ckly followed. was noted to be vigorous soon after delivery. Cord was double clamped and cu t. was taken to the waiting nursery staff. Cord blood was obtained. Attention was then tur angela to delivery of the placenta, which was delivered intact, 3-vessel cord, gentle cord traction. Th e uterus was then exteriorized, wrapped in a wet lap and several dry laps were used to remove any rem aining membranes. A bladder blade was reinserted and the hysterotomy was reapproximated with 0 Vicry l continuous running lock stitch, second imbricating layer of 0 Vicryl was then performed. The uteru s was noted to be hemostatic and the uterus was returned to maternal abdomen. The right and left per icolic gutters were cleaned of clots and debris. Hysterotomy was reinspected and noted to have joie nued hemostasis. The subcutaneous layers, fascia and muscle layers were all inspected and noted to b e hemostatic. The fascia was reapproximated with 0 Vicryl continuous running stitch. The subcutaneo us layers were reapproximated with 2-0 plain with a continuous running stitch. The skin was reapprox imated with 3-0 Vicryl on a subcuticular stitch. Needle, sponge, and instrument counts were correct at the completion of the case. Both mother and were stable in the immediate post-delivery ashley. Job ID: [id number]
[2022-07-04] MEDS: OXYTOCIN 20 UNITS in LACTATED RINGER'S 1,000 ML IV SCH ×2 (11:11→19:53)
[2022-07-04] MEDS ORDERED: traMADol HCL 50 MG TABLET PO PRN (12:00)
[2022-07-04] MEDS: KETOROLAC 30 MG/ML VIAL IV PRN ×2 (12:28→18:10)
[2022-07-04] MEDS: LACTATED RINGER'S 1,000 ML IV SCH ×2 (13:17→20:58)
[2022-07-04] MEDS: SIMETHICONE 80 MG CHEW PO SCH ×3 (14:22→20:54)
--- NOTE | 2022-07-04 15:12 | Electrocardiogram Report ---
Test Reason : Blood Pressure : / mmHG Vent. Rate : 059 BPM Atrial Rate : 059 BPM P-R Int : 132 ms QRS Dur : 068 ms QT Int : 412 ms P-R-T Axes : 053 064 033 degrees QTc Int : 407 ms Sinus bradycardia Otherwise normal ECG When compared with ECG of 12-JUN-2022 22:26, Nonspecific T wave abnormality now evident in Anterior leads Confirmed by Anil Watts ([id number]) on 07/04/2022 3:12:09 PM Referred By: Lina Lockhart Confirmed By:Anil Watts
[2022-07-04] MEDS: DOCUSATE SODIUM 100 MG CAP PO SCH (20:54)
[2022-07-05] MEDS: KETOROLAC 30 MG/ML VIAL IV PRN (01:50)
[2022-07-05] MEDS ORDERED: diphenhydrAMINE 50 MG/ML VIAL IV PRN (01:55)
[2022-07-05] MEDS ORDERED: KETOROLAC 30 MG/ML VIAL IV PRN (01:55)
[2022-07-05] MEDS ORDERED: MEPERIDINE HCL 50 MG/ML CARP IV PRN (01:55)
[2022-07-05] MEDS ORDERED: oxyCODONE/ACETAMINOPHEN 5mg/325mg TAB PO PRN (01:55)
[2022-07-05] MEDS ORDERED: diphenhydrAMINE Capsule 25 MG CAP PO PRN (01:55)
[2022-07-05] MEDS ORDERED: ONDANSETRON INJ 2 MG/ML 2 ML VIAL IV PRN (01:55)
[2022-07-05] MEDS ORDERED: PROMETHAZINE HCL 25 MG in SODIUM CHLORIDE 0.9% 50 ML IV PRN (01:55)
[2022-07-05 06:09] LABS: Hemoglobin 11.5 g/dl (12.0-16.0); Red Blood Count 3.66 M/uL (4.20-5.40); White Blood Count 8.17 K/ul (4.8-10.8)
[2022-07-05 06:10] LABS: Basophils # (auto) 0.03 K/uL (0-0.2); Basophils % (auto) 0.4 %; Eosinophils # (auto) 0.05 K/uL (0-0.50); Eosinophils % (auto) 0.6 %; Hematocrit (blood only) 33.9 % (37.0-47.0); Immature Granulocytes # (auto) 0.03 K/uL (0.01-0.20); Immature Granulocytes % (auto) 0.4 %; Lymphocytes # (auto) 1.34 K/uL (1.2-3.4); Lymphocytes % (auto) 16.4 %; Mean Corpuscular Hemoglobin 31.4 pg (25.0-34.0); Mean Corpuscular Hgb Conc 33.9 g/dL (32.0-36.0); Mean Corpuscular Volume 92.6 fL (80.0-100.0); Monocytes # (auto) 0.64 K/uL (0.11-0.59); Monocytes % (auto) 7.8 %; Neutrophils # (auto) 6.08 K/uL (1.40-6.50); Neutrophils % (auto) 74.4 %; Platelet Count 170 K/uL (130-400); RDW Coefficient of Variation 13.5 % (11.5-14.5); RDW Standard Deviation 45.8 fL (36.4-46.3)
--- NOTE | 2022-07-05 07:33 | Obstetrical Progress Note ---
Date of Service July 05, 2022 Assessment & Plan (1) : (2) Anxiety: (3) Cervical intraepithelial neoplasia (MARLEN): (4) Cholestasis of : (5) Supervision of elderly multigravida: Plan Mago is a 36 y/o female who is POD #1 following repeat LTCS delivery at 39 weeks. -Meeting all milestones -O+/GBS negative/Rubella immune -Vital signs reviewed and WNL, Hemoglobin this a.m. is 11.5 -Follow up in 6 weeks for appointment -Continue routine care Admission and Anticipated Discharge Date Admission Date: July 04, 2022 Supervising Physician Co-Signing Physician Notes patient seen and evaluated and agree with the above assessment and plan. routine care. Subjective Mago is a 36 y/o female who is POD #1 following repeat LTCS delivery at 39 weeks. She has PMH of SVT (s/p cardiac ablation). She reports feeling well overall this morning. Notes abdominal cramping & pain at surgical incision site well managed on analgesics (Toradol yesterday, did not feel well with Percocet after prior c/s). Voiding without issue since removal of eckert catheter. Tolerating meals overnight and able to ambulate some. Endorses passing gas but overall having some gas pains, responds to simethicone. Has some persistent loch ia with some improvement this morning. Currently breast feeding. Review of Systems Constitutional: no fever, no chills and no sweats Respiratory: no cough, no dyspnea and no wheezing Cardiovascular: no chest pain, no palpitations and no calf pain Genitourinary: no dysuria Neurologic: no headache(s) Physical Exam Constitutional: WD/WN, vitals as above no acute distress Respiratory: no respiratory distress Auscultation: lungs clear to auscultation bilaterally; no rales, no rhonchi and no wheezes Cardiovascular: RRR, no murmur, no edema Extremities: no calf tenderness and no edema Negative Dereje's sign bilaterally. Gastrointestinal (Abdomen): Inspection/Auscultation: normal bowel sounds Skin: no rashes, warm and dry Genitourinary: Uterine fundus firm, palpable below the umbilicus. Surgical incision site clean and healing appropriately. Results & Data Vital Signs (Past 12 Hours) Vital Signs Temp Pulse Resp BP Pulse Ox O2 Del Method 07/05/22 04:00 36.7 C 54 L 18 112/64 98 Room Air 07/05/22 01:00 18 98 07/05/22 00:01 18 98 07/04/22 23:00 18 97 07/04/22 23:00 36.8 C 55 L 18 108/58 L 97 Room Air 07/04/22 22:28 18 97 07/04/22 21:30 16 98 07/04/22 20:40 16 97 07/04/22 19:35 18 07/04/22 19:35 36.8 C 59 L 16 115/61 98 Room Air Resident Activity Tracking Resident Involvement: Resident Care Provided Care Provided: OB Delivery
[2022-07-05] MEDS: PRENATAL VITAMIN 1 TAB PO SCH (08:20)
[2022-07-05] MEDS: DOCUSATE SODIUM 100 MG CAP PO SCH ×2 (08:20→20:05)
[2022-07-05] MEDS: FERROUS SULFATE 325 MG TAB PO SCH (08:20)
[2022-07-05] MEDS: IBUPROFEN 600 MG TAB PO PRN ×3 (08:21→17:15)
[2022-07-05] MEDS: SIMETHICONE 80 MG CHEW PO SCH ×4 (08:21→20:05)
[2022-07-05] MEDS ORDERED: bisacodyL 5 MG TABEC PO SCH (20:00)
--- NOTE | 2022-07-06 00:43 | Obstetrical Progress Note ---
Date of Service July 06, 2022 Assessment & Plan (1) care and examination: (2) Heart palpitations: Plan ekg ordered, awaiting official read. pvc's noted. i d/w pt and feel need care and guidance of hospitalist medicine. spoke to them on phone. labs ordered. she will plan to let us know about any worsening symptoms immediately if they occur. Admission and Anticipated Discharge Date Admission Date: July 04, 2022 Subjective [address]sp due to palpitations since 2pm. pt notes these are not like her prior svt palpitations, she has had cardiac ablation in past, sees cards in [place] since teenage years. these are rhthymic skipped beats, about every 4-5. she denies sob or cp. she feels that she is fatigued due to having these all day. Physical Exam Constitutional: WD/WN, vitals as above Cardiovascular: Rate/Rhythm: regular rate; + abnormal rhythm (can hear arrhythmia every 4th beat) Results & Data Vital Signs (Past 12 Hours) Vital Signs Temp Pulse Resp BP Pulse Ox O2 Del Method 07/05/22 20:00 97.3 F L 64 18 116/69 99 Room Air 07/05/22 12:40 98.4 F 68 16 124/72 Room Air PG Care Time/CCT Total # of Minutes Spent Total Time Spent with Patient: Total time spent is greater than 50% in coordination of care (as documented) at patient's floor/unit and/or counseling patient: Coding Level of Care Code None Diagnoses care and examination Z39.2 Heart palpitations R00.2
[2022-07-06] MEDS: IBUPROFEN 600 MG TAB PO PRN ×3 (00:55→13:20)
[2022-07-06 01:38] LABS: Hematocrit (blood only) 33.5 % (37.0-47.0); Hemoglobin 11.4 g/dl (12.0-16.0)
[2022-07-06 01:47] LABS: Alanine Aminotransferase 6 U/L (7-52); Albumin Globulin Ratio 1.1 (0.9-2); Albumin Level 2.8 gm/dl (3.4-5.0); Alkaline Phosphatase 93 U/L (34-104); Anion Gap 8 (3-11); Aspartate Aminotransferase 16 U/L (13-39); Bilirubin,Total 0.2 mg/dl (0.2-1.0); Blood Urea Nitrogen 8 mg/dl (6-23); Calcium 8.1 mg/dl (8.6-10.3); Carbon Dioxide 23 mmol/L (21-32); Chloride 106 mmol/L (98-107); Creatinine Clr Calc Pharmacy 188.6 ml/min; Est GFR (African American) > 150.0 ml/min; Est GFR (Non-African American) 132.8 ml/min; Globulin 2.5 gm/dl (2.5-4.0); Glucose 103 mg/dl (70-99(Fasting)); Magnesium 1.5 mg/dl (1.7-2.4); Potassium 3.6 mmol/L (3.5-5.1); Sodium 137 mmol/L (136-145); Total Protein 5.3 gm/dl (6.0-8.3)
--- NOTE | 2022-07-06 07:11 | Obstetrical Progress Note ---
Date of Service July 06, 2022 Assessment & Plan (1) : (2) Anxiety: (3) Supervision of elderly multigravida: Plan Mago is a 36 y/o female who is POD #2 following repeat LTCS delivery at 39 weeks. -Meeting all milestones -O+/GBS negative/Rubella immune -Vital signs reviewed and WNL -Will add Tylenol to alternate with Motrin -EKG last night sinus with PVC's, hospitalist team consulted for palpitations- await recommendations -Continue routine care -Patient interested in possible d/c later today Admission and Anticipated Discharge Date Admission Date: July 04, 2022 Supervising Physician Co-Signing Physician Notes Resident Physician Supervision Note: I was present with Dr. Billings during the history and exam. I discussed the case with the resident and agree with the findings and plan as documented in the note. Any exceptions or clarifications are listed here: doing well. now that she is awake she does feel her palpitations but not as frequent. discussed pain meds, declines percocet. will plan motrin and tylenol. likely desires dc home later today. will review instructions. eating, voiding, ambulating. abd soft ff 2 down, nt incision c/d/i. ext nt calves. pod#2 s/p c/s. Documented By: Trudi Tesfaye MD, FACOG Subjective Mago is a 36 y/o female who is POD #1 following repeat LTCS delivery at 39 weeks. She reports feeling well overall this morning, did have more palpitations last night. States she just woke up so isn't sure if she is experiencing any this morning. Denies chest pain or shortness of breath. Has abdominal cramping/pain at surgical incision especially while ambulating. Voiding without issue. Tolerating meals overnight and able to ambulate some. Endorses passing gas, states gas pain has improved. Has some persistent lochia with some improvement this morning. Currently breast feeding. Review of Systems Constitutional: no fever, no chills and no sweats Respiratory: no cough, no dyspnea and no wheezing Cardiovascular: no chest pain and no calf pain Genitourinary: no dysuria Neurologic: no headache(s) Physical Exam Constitutional: WD/WN, vitals as above no acute distress Respiratory: no respiratory distress Auscultation: lungs clear to auscultation bilaterally; no rales, no rhonchi and no wheezes Cardiovascular: RRR, no murmur, no edema Extremities: no calf tenderness and no edema Gastrointestinal (Abdomen): Inspection/Auscultation: normal bowel sounds Skin: no rashes, warm and dry Genitourinary: Uterine fundus firm, palpable below umbilicus. Surgical incision site is clean and healing appropriately. Results & Data Vital Signs (Past 12 Hours) Vital Signs Temp Pulse Resp BP Pulse Ox O2 Del Method 07/06/22 04:40 36.8 C 61 18 119/73 98 Room Air 07/05/22 23:20 36.6 C 60 18 114/67 96 Room Air 07/05/22 20:00 36.3 C L 64 18 116/69 99 Room Air Resident Activity Tracking Resident Involvement: Resident Care Provided Care Provided: OB Delivery
[2022-07-06] MEDS ORDERED: ACETAMINOPHEN 325 MG TAB PO PRN (07:32)
[2022-07-06] MEDS ORDERED: bisacodyL 10 MG SUPP PR PRN (08:21)
[2022-07-06] MEDS: DOCUSATE SODIUM 100 MG CAP PO SCH (08:51)
[2022-07-06] MEDS: PRENATAL VITAMIN 1 TAB PO SCH (08:51)
[2022-07-06] MEDS: FERROUS SULFATE 325 MG TAB PO SCH (08:51)
[2022-07-06] MEDS: SIMETHICONE 80 MG CHEW PO SCH ×2 (08:51→13:19)
--- NOTE | 2022-07-06 11:10 | Hospitalist Consultation ---
Date of Consultation July 06, 2022 Assessment & Plan (1) Heart palpitations: Palpitations secondary to frequent PVCs She has no syncope or presyncope, blood pressures are normal. Likely secondary to stress of recent major surgery, fluid shifts, hypomagnesemia, and relative hypokalemia Has a history of underlying SVT s/p ablation, no evidence of that at this time Echocardiogram from 01/2022 is normal -Not overly concerning -Recommend replacing magnesium with magnesium oxide 4 mg p.o. x1, and replace potassium with 40 mill equivalents p.o. potassium chloride x1 -Recommend staying hydrated at home with fluids with electrolytes -If PVCs do not resolve at home or become worse or certainly if has presyncope o r syncope, return to hospital, but do not suspect this will occur (2) H/O supraventricular tachycardia: Status post ablation, no evidence of this at this time Plan Disposition-medically stable for discharge after magnesium and potassium replacement. Relayed this information to the resident on the OB service as well as Dr. Tesfaye. History of Present Illness Reason for Consultation: Palpitations, from postop day #2 Requesting Physician: Dr. Tesfaye Attending Physician: Bernard Madrigal MD History of Present Illness This patient is a 36-year-old female here 2 days postop from a section, with a history of AVNRT s/p ablation x2 with most recent ablation being 10 years ago, MVP, and anxiety disorder, who is complaining of frequent palpitations since her . She denies any chest pain or shortness of breath, no lightheadedness or nausea or abdominal pains other than from her . She had fairly minimal drop in hemoglobin. She feels like her heart is giving an extra beat every 4-5 beats since yesterday. She reports in the past when she had issues with SVT, she was on a beta-leigh and it caused extreme fatigue. She has been off of that for many years. She is breast-feeding, eating and drinking, no nausea or vomiting, otherwise feeling well. Hospitalist service was consulted for palpitations. Allergies Allergy/AdvReac Type Severity Reaction Status Date / Time No Known Allergies Allergy Verified 07/03/22 09:17 Home Medications Medication Instructions Recorded Confirmed Type prenat.vits,teja,lms-rhqm-iuejz 1 tab PO QAM 02/15/20 07/03/22 History cholecalciferol (vitamin D3) 125 125 mcg PO QAM 05/25/20 07/03/22 History mcg (5,000 unit) tablet (Vitamin D3) omega 3-dha 250 mg-epa 350 mg-fish 2 cap PO QAM 05/25/20 07/03/22 History oil 1,000 mg capsule ferrous sulfate 325 mg (65 mg 325 mg PO UD 06/25/22 07/03/22 History iron) tablet (Iron (ferrous sulfate)) acetaminophen 325 mg tablet 650 mg PO Q4H PRN #0 tabs 07/06/22 Rx ibuprofen 600 mg tablet 600 mg PO Q4H PRN #0 tabs 07/06/22 Rx Patient History Medical History Anxiety Breech presentation H/O supraventricular tachycardia hx s/p ablation- follows w/ Dr Jeremi Varela[facility] [place] [facility] last visit 03/2022 History of chicken pox History of COVID-19 09/2021- chills, resolved Hx of migraines Remote hx Mitral valve prolapse Dx age 21 (Dr[facility] Jeremi [facility]) Nausea and vomiting after administration of anesthetic agent Pre-syncope 06/2022-was seen and treated at [facility]- ER Surgical History H/O wisdom tooth extraction History of esophagogastroduodenoscopy (EGD) History of removal of cyst S/P ablation of ventricular arrhythmia for issues w/ SVT x 2- last one 11 yrs ago - S/P section Family History Grandfather (Maternal) Cancer of kidney Heart disease Grandfather (Paternal) Stroke Mother Hypothyroid Denies family history of Ovarian cancer Breast cancer Colorectal cancer Social History Smoking Status: Never smoker Cigarettes Per Day: quit 15 yrs ago; Second Hand Exposure: No; Do You Dip or Chew Tobacco: No; Hx Alcohol Use: No Hx Substance Use: No Preferred Language: Cypriot Communication Ability: Effective Visual Impairment: No Limitations Construction Manager Required: No Beliefs That Will Affect Care: None marital status: marital status details: Chris Bowen (37) [phone] Current Living Situation: Spouse and Family Current Living Situation Comment: lives with spouse, son, current occupational status: 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[employer] Feels Safe at Home: Yes Diet: regular during the past year weight has: decreased > 10 lbs Assistive Devices: None Review of Systems Review of Systems: All systems reviewed & are unremarkable except as noted in HPI & below Physical Exam Constitutional: WD/WN, vitals as above Eyes: + anicteric sclerae Respiratory: normal respiratory effort, lungs clear to auscultation Cardiovascular: RRR, no murmur, no edema (With occasional ectopy on exam) Skin: no rashes, warm and dry Neurologic: no focal motor deficits and not confused Psychiatric: A+Ox3, euthymic affect Results & Data Results & Data Vital Signs (Past 12 Hours) Vital Signs Temp Pulse Resp BP Pulse Ox O2 Del Method 07/06/22 09:44 36.7 C 57 L 16 118/69 98 Room Air 07/06/22 04:40 36.8 C 61 18 119/73 98 Room Air 07/05/22 23:20 36.6 C 60 18 114/67 96 Room Air Laboratory Results CBC, BMP, magnesium level, and TSH reviewed ECG Additional Comments: ECG from 07/06/2022 at 00 15 a.m. with sinus rhythm with PVCs, septal infarct noted-similar to previous except PVCs ECG from 07/06/2022 at 10:44 AM with sinus rhythm, rate 79 with PVCs PG Care Time/CCT Total # of Minutes Spent Total Time Spent with Patient: Total time spent is greater than 50% in coordination of care (as documented) at patient's floor/unit and/or counseling patient: Coding Level of Care Code 22777 IN/OBS CONSULT LVL 2,35M Diagnoses Heart palpitations R00.2 H/O supraventricular tachycardia Z86.79
[2022-07-06] MEDS ORDERED: POTASSIUM CHLORIDE CRTAB 20 MEQ TABCR PO STA (11:29)
[2022-07-06] MEDS ORDERED: MAGNESIUM OXIDE 400 MG TAB PO ONE (11:29)
[2022-07-06] MEDS ORDERED: MAGNESIUM SULFATE / D5W 1 GM/100 ML BAG IV SCH (11:30)
--- NOTE | 2022-07-06 21:59 | Electrocardiogram Report ---
Test Reason : Blood Pressure : / mmHG Vent. Rate : 067 BPM Atrial Rate : 067 BPM P-R Int : 134 ms QRS Dur : 064 ms QT Int : 374 ms P-R-T Axes : 075 049 043 degrees QTc Int : 395 ms Sinus rhythm with Premature supraventricular complexes and PVCs Septal infarct (cited on or before 06-JUL-2022) Abnormal ECG When compared with ECG of 04-JUL-2022 12:22, Premature supraventricular complexes are now Present Confirmed by Anil Watts ([id number]) on 07/06/2022 9:58:51 PM Referred By: Lina Lockhart Confirmed By:Anil Watts
--- NOTE | 2022-07-06 22:23 | Electrocardiogram Report ---
Test Reason : Blood Pressure : / mmHG Vent. Rate : 079 BPM Atrial Rate : 064 BPM P-R Int : 130 ms QRS Dur : 072 ms QT Int : 390 ms P-R-T Axes : 074 047 060 degrees QTc Int : 447 ms Sinus rhythm with occasional Premature ventricular complexes Low voltage QRS Cannot rule out Anterior infarct (cited on or before 06-JUL-2022) Abnormal ECG When compared with ECG of 06-JUL-2022 00:15, (unconfirmed) No significant change Confirmed by Anil Watts ([id number]) on 07/06/2022 10:22:52 PM Referred By: Lina Lockhart Confirmed By:Anil Watts
== END 2022-07-06 14:00 | disposition home or self-care (01) | DRG 787 ==
LOC: 4S1 05:42 → 4E2 15:09 → EDSTATUS 07-06 07:30